=== PATIENT | female | born 1940 ===

== ENCOUNTER 2017-03-14 19:02 | Inpatient (IN) | payer MEDICARE, MEDICAID ==
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
[2017-03-14 20:36] LABS: BASO # 0.1 K/uL (0.0-0.2); BASO % 0.6 % (0.0-2.0); EOS # 0.1 K/uL (0.0-0.7); EOS % 0.5 % (0.0-4.0); HEMOGLOBIN 13.5 g/dL (12.0-16.0); LYMPH # 2.5 K/uL (1.0-4.3); LYMPH % 15.8 % (20.0-40.0); MEAN CELL VOLUME 93.2 fl (81.0-99.0); MEAN CORPUSCULAR HEMOGLOBIN 31.3 pg (27.0-31.0); MEAN CORPUSCULAR HGB CONC 33.6 g/dL (33.0-37.0); MEAN PLATELET VOLUME 8.5 fl (7.2-11.7); MONO # 1.6 K/uL (0.0-0.8); MONO % 10.3 % (0.0-10.0); NEUT # 11.5 K/uL (1.8-7.0); NEUT % 72.8 % (50.0-75.0); RBC 4.32 Mil/uL (3.80-5.20); RED CELL DISTRIBUTION WIDTH 13.4 % (11.5-14.5); WHITE BLOOD COUNT 15.8 K/uL (4.8-10.8)
[2017-03-14 20:49] LABS: ALB/GLOB RATIO 1.5 (1.0-2.1); ALBUMIN 4.8 g/dL (3.5-5.0); ALT/SGPT 34 U/L (9-52); AST/SGOT 49 U/L (14-36); BLOOD UREA NITROGEN 12 mg/dl (7-17); CALCIUM 10.3 mg/dL (8.4-10.2); GFR AFRICAN-AMERICAN > 60; GFR NON-AFRICAN AMERICAN > 60
[2017-03-14] MEDS ORDERED: Sodium Chloride 0.9% 1,000 ML IV STA (20:59)
[2017-03-14 21:18] LABS: PROTHROMBIN TIME 11.5 Seconds (9.8-13.1)
[2017-03-14 22:11] LABS: BARBITURATES, UR NEGATIVE (NEGATIVE); BENZODIAZEPINES, UR POSITIVE (NEGATIVE); OPIATES, UR NEGATIVE (NEGATIVE); PHENCYCLIDINE, UR NEGATIVE (NEGATIVE)
[2017-03-14 22:15] LABS: SQUAMOUS EPITHIAL 1 /hpf (0-5); URINE BACTERIA RARE (<OCC); URINE BILIRUBIN NEGATIVE (NEGATIVE); URINE BLOOD NEGATIVE (NEGATIVE); URINE CLARITY CLEAR (Clear); URINE COLOR STRAW (YELLOW); URINE GLUCOSE (UA) NEG (Normal); URINE LEUKOCYTE ESTERASE MOD Leu/uL (Negative); URINE NITRATE NEGATIVE (NEGATIVE); URINE PROTEIN NEGATIVE (NEGATIVE); URINE UROBILINOGEN 0.2-1.0 mg/dL (0.2-1.0)
[2017-03-14 23:43] LABS: SALICYLATE < 1.0 mg/dl
[2017-03-14 23:52] LABS: ACETAMINOPHEN < 10.0 ug/ml (10.0-30.0)
[2017-03-15] MEDS: Sodium Chloride 0.45% 1,000 ML IV SCH ×4 (01:22→20:45)
--- NOTE | 2017-03-15 08:24 | RAD ---
HISTORY: admit COMPARISON: Chest x-ray performed 02/24/13 TECHNIQUE: Chest, one view. FINDINGS: Examination limited by habitus. LUNGS: No focal consolidation. Please note that chest x-ray has limited sensitivity for the detection of pulmonary masses. PLEURA: No significant pleural effusion identified. No definite pneumothorax . CARDIOVASCULAR: Heart size appears within normal limits. Prominence of the mediastinum appears related to tortuous aorta. OSSEOUS STRUCTURES: Degenerative changes of the spine and shoulders. Acromioclavicular arthropathy. VISUALIZED UPPER ABDOMEN: Mild elevation of the right hemidiaphragm. OTHER FINDINGS: None. IMPRESSION: No focal consolidation, significant pleural effusion, or definite pneumothorax identified. Prominence of the aorta appears related to tortuous aorta. Additional findings as above.
[2017-03-15] MEDS: Enoxaparin 40 mg Syringe SC SCH (09:47)
--- NOTE | 2017-03-15 13:47 | CARD ---
APPROVED REPORT EKG Measurement Heart [id number] <Conclusion> Sinus rhythm with 1st degree AV block Minimal voltage criteria for LVH, may be normal variant Nonspecific T wave abnormality Prolonged QT Abnormal ECG
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
[2017-03-16] MEDS: Enoxaparin 40 mg Syringe SC SCH (08:31)
--- NOTE | 2017-03-16 12:41 | CP.PCM.CON ---
History of Present Illness - History of Present Illness History of Present Illness: Psychiatry Consult Note CC: "I'm having back pain" HPI: Patient 76 yo F with PMH of HTN, Hypercholesterolemia, and mood disorder ( depression vs bipolar disorder) presented to the ED complaining of dizziness. Patient denies psychiatric complaints to commercial real estate underwriter. Denies h/o bipolar disorder. Denies depression/anxiety. Denies hallucinations. A+ O x 3. She reports that she takes Xanax (dose unknown) and trazodone for sleep. PPHx: Patient is denying h/o psychiatric admission to commercial real estate underwriter. She reports that she sees Dr. Leal, who prescribes her Xanax and Trazodone for sleep. PMH: HTN, Hypercholesterolemia, Depression, chronic back pain, osteoarthrisis PSH: Hysterectomy, Hallux valgus. SH: denies smoking, alcohol or drugs. Allergies: NKA. PCP: Dr Reyes. MSE: A + O x 3, calm, cooperative, speech normal, accents, mood "okay", affect - broad, thought process- linear/coherent, no paranoia/delusions, no hallucinations. insight/judgment fair. good impulse control. No HI/SI. Impression: 76 yo female w/ reported history of depression (denies h/o bipolar disorder), patient denies any current psychiatric complaints and is not agreeable to inpatient admission at this time. -Continue Trazodone 50 mg PO HS -Hold Xanax and other benzodiazepines if the patient is having periods of confusion/delirium as these can worsening confusion and increase risk of falls -No acute inpatient admission indicated at this time Past Patient History - Past Medical History & Family History Past Medical History?: Yes - Past Social History Smoking Status: Never Smoked - CARDIAC Hx Cardiac Disorders: Yes Hx Hypercholesterolemia: Yes Hx Hypertension: Yes - PULMONARY Hx Respiratory Disorders: No Hx Tuberculosis: No - NEUROLOGICAL Hx Neurological Disorder: Yes Hx Dementia: Yes Hx Seizures: No - HEENT Hx HEENT Problems: No - RENAL Hx Chronic Kidney Disease: No - ENDOCRINE/METABOLIC Hx Endocrine Disorders: No - HEMATOLOGICAL/ONCOLOGICAL Hx Blood Disorders: No Hx Human Immunodeficiency Virus (HIV): No - INTEGUMENTARY Hx Dermatological Problems: No - MUSCULOSKELETAL/RHEUMATOLOGICAL Hx Musculoskeletal Disorders: Yes Hx Arthritis: Yes Hx Falls: Yes - GASTROINTESTINAL Hx Gastrointestinal Disorders: No - GENITOURINARY/GYNECOLOGICAL Hx Genitourinary Disorders: No Hx Sexually Transmitted Disorders: No - PSYCHIATRIC Hx Psychophysiologic Disorder: Yes Hx Anxiety: Yes Hx Bipolar Disorder: Yes Hx Depression: Yes Hx Substance Use: No - SURGICAL HISTORY Hx Surgeries: Yes Hx Hysterectomy: Yes Other/Comment: Colonoscopy - ANESTHESIA Hx Anesthesia: Yes Hx Anesthesia Reactions: No Hx Malignant Hyperthermia: No Has any member of the family had a problem w/ anesthesia?: No Meds Allergies/Adverse Reactions: Allergies Allergy/AdvReac Type Severity Reaction Status Date / Time No Known Allergies Allergy Unverified 02/20/15 11:41 - Medications Medications: Current Medications Acetaminophen (Tylenol 325mg Tab) 650 mg PO Q6 PRN PRN Reason: Pain, moderate (4-7) Last Admin: 03/16/17 00:39 Dose: 650 mg Enoxaparin Sodium (Lovenox) 40 mg SC DAILY TETE PRN Reason: Protocol Last Admin: 03/16/17 08:31 Dose: 40 mg Nystatin (Nystop Topical Powder) 1 applic TOP TID TETE Pantoprazole Sodium (Protonix Ec Tab) 40 mg PO DAILY TETE Tramadol HCl (Ultram) 50 mg PO Q6 PRN PRN Reason: Pain, severe (8-10) Trazodone HCl (Desyrel) 50 mg PO HS TETE Last Admin: 03/15/17 23:43 Dose: 50 mg Results - Vital Signs Recent Vital Signs: Last Vital Signs Temp 98.2 F 03/16/17 07:31 Pulse 82 03/16/17 10:28 Resp 18 03/16/17 07:31 BP 142/85 03/16/17 10:28 Pulse Ox 98 03/16/17 10:28 - Labs Result Diagrams: 03/14/17 20:31 03/14/17 20:31
[2017-03-16 14:44] LABS: BLOOD UREA NITROGEN 6 mg/dl (7-17); CALCIUM 9.5 mg/dL (8.4-10.2); GFR AFRICAN-AMERICAN > 60; GFR NON-AFRICAN AMERICAN > 60
[2017-03-16 15:39] LABS: BASO # 0.1 K/uL (0.0-0.2); BASO % 1.1 % (0.0-2.0); EOS # 0.6 K/uL (0.0-0.7); EOS % 4.7 % (0.0-4.0); HEMOGLOBIN 14.1 g/dL (12.0-16.0); LYMPH # 3.9 K/uL (1.0-4.3); LYMPH % 31.8 % (20.0-40.0); MEAN CELL VOLUME 94.3 fl (81.0-99.0); MEAN CORPUSCULAR HEMOGLOBIN 31.5 pg (27.0-31.0); MEAN CORPUSCULAR HGB CONC 33.4 g/dL (33.0-37.0); MEAN PLATELET VOLUME 8.6 fl (7.2-11.7); MONO # 1.1 K/uL (0.0-0.8); MONO % 9.3 % (0.0-10.0); NEUT # 6.5 K/uL (1.8-7.0); NEUT % 53.1 % (50.0-75.0); NRBC % 0.2 % (0.0-0.0); RBC 4.48 Mil/uL (3.80-5.20); RED CELL DISTRIBUTION WIDTH 13.8 % (11.5-14.5); WHITE BLOOD COUNT 12.2 K/uL (4.8-10.8)
[2017-03-16] MEDS ORDERED: Potassium Chloride 20 mEq ER Tab PO ONE (16:06)
[2017-03-16] MEDS: Pantoprazole 40 mg EC Tab PO SCH (20:38)
--- NOTE | 2017-03-16 23:41 | CP.PCM.PN ---
Subjective - Date & Time of Evaluation Date of Evaluation: 03/16/17 Time of Evaluation: 11:45 - Subjective Subjective: Seen and examined at the bed side. States feeling better. Patient's son wants her to go for [facility] due to multiple falls. Psych evaluated the patient and no inpatient pscyh treatment and discontinued 1 to 1. PT/OT evaluated and recommended [facility]. Objective - Vital Signs/Intake and Output Vital Signs (last 24 hours): Temp Pulse Resp BP Pulse Ox 97 F L 94 H 18 138/89 99 03/16/17 18:00 03/16/17 18:00 03/16/17 18:00 03/16/17 18:00 03/16/17 18:00 - Medications Medications: Current Medications Acetaminophen (Tylenol 325mg Tab) 650 mg PO Q6 PRN PRN Reason: Pain, moderate (4-7) Last Admin: 03/16/17 00:39 Dose: 650 mg Enoxaparin Sodium (Lovenox) 40 mg SC DAILY [facility] PRN Reason: Protocol Last Admin: 03/16/17 08:31 Dose: 40 mg Nystatin (Nystop Topical Powder) 1 applic TOP TID [facility] Last Admin: 03/16/17 16:30 Dose: 1 applic Pantoprazole Sodium (Protonix Ec Tab) 40 mg PO DAILY [facility] Last Admin: 03/16/17 20:38 Dose: 40 mg Tramadol HCl (Ultram) 50 mg PO Q6 PRN PRN Reason: Pain, severe (8-10) Last Admin: 03/16/17 23:24 Dose: 50 mg Trazodone HCl (Desyrel) 50 mg PO HS [facility] Last Admin: 03/16/17 22:32 Dose: 50 mg - Labs Labs: 03/16/17 15:35 03/16/17 13:20 PT 11.5 Seconds (9.8-13.1) 03/14/17 20:31 INR 1.0 (0.9-1.2) 03/14/17 20:31 APTT 31.0 Seconds (25.6-37.1) 03/14/17 20:31 - Constitutional Appears: No Acute Distress - Head Exam Head Exam: ATRAUMATIC, NORMAL INSPECTION, NORMOCEPHALIC - Eye Exam Eye Exam: EOMI, Normal appearance, PERRL Pupil Exam: NORMAL ACCOMODATION, PERRL - ENT Exam ENT Exam: Mucous Membranes Moist, Normal Exam - Neck Exam Neck Exam: Full ROM, Normal Inspection. absent: Lymphadenopathy - Respiratory Exam Respiratory Exam: Clear to Ausculation Bilateral, NORMAL BREATHING PATTERN - Cardiovascular Exam Cardiovascular Exam: REGULAR RHYTHM, +S1, +S2. absent: Murmur - GI/Abdominal Exam GI & Abdominal Exam: Soft, Normal Bowel Sounds. absent: Tenderness - Extremities Exam Extremities Exam: Full ROM, Normal Capillary Refill, Normal Inspection. absent : Joint Swelling, Pedal Edema - Back Exam Back Exam: NORMAL INSPECTION - Neurological Exam Neurological Exam: Alert, Awake, CN II-XII Intact, Normal Gait, Oriented x3 - Psychiatric Exam Psychiatric exam: Normal Affect, Normal Mood - Skin Skin Exam: Dry, Intact, Normal Color, Warm Assessment and Plan (1) Rhabdomyolysis Assessment & Plan: Bruises, Multiple Fall Precaution PT/OT Evaluation Status: Acute (2) Rhabdomyolysis Assessment and Plan: IVF Recheck BMP and Repeat CPK total Status: Acute (3) Depression Assessment and Plan: on from ER Crises evalauted Psych Consult for D/C Status: Acute
[2017-03-17] MEDS: Enoxaparin 40 mg Syringe SC SCH (09:27)
[2017-03-17] MEDS: Pantoprazole 40 mg EC Tab PO SCH (09:27)
[2017-03-17 11:00] LABS: BASO # 0.1 K/uL (0.0-0.2); BASO % 0.7 % (0.0-2.0); EOS # 0.1 K/uL (0.0-0.7); EOS % 1.2 % (0.0-4.0); HEMOGLOBIN 14.1 g/dL (12.0-16.0); LYMPH # 2.7 K/uL (1.0-4.3); LYMPH % 25.7 % (20.0-40.0); MEAN CELL VOLUME 93.4 fl (81.0-99.0); MEAN CORPUSCULAR HEMOGLOBIN 31.9 pg (27.0-31.0); MEAN CORPUSCULAR HGB CONC 34.2 g/dL (33.0-37.0); MEAN PLATELET VOLUME 8.5 fl (7.2-11.7); MONO # 0.7 K/uL (0.0-0.8); MONO % 6.2 % (0.0-10.0); NEUT % 66.2 % (50.0-75.0); RBC 4.42 Mil/uL (3.80-5.20); RED CELL DISTRIBUTION WIDTH 13.8 % (11.5-14.5); WHITE BLOOD COUNT 10.6 K/uL (4.8-10.8)
[2017-03-17 11:08] LABS: BLOOD UREA NITROGEN 10 mg/dl (7-17); CALCIUM 9.9 mg/dL (8.4-10.2); GFR AFRICAN-AMERICAN > 60; GFR NON-AFRICAN AMERICAN > 60
--- NOTE | 2017-03-17 23:10 | CP.PCM.PN ---
Subjective - Date & Time of Evaluation Date of Evaluation: 03/17/17 Time of Evaluation: 14:15 - Subjective Subjective: Bruises, Multiple Fall Precaution PT/OT Evaluation Status: Acute (2) Rhabdomyolysis Assessment and Plan: IVF Recheck BMP and Repeat CPK total Status: Acute (3) Depression Assessment and Plan: on 1 to 1 from ER Crises evalauted Psych Consult for D/C Objective - Vital Signs/Intake and Output Vital Signs (last 24 hours): Temp Pulse Resp BP Pulse Ox 98.2 F 71 18 162/93 H 94 L 03/17/17 16:19 03/17/17 17:19 03/17/17 16:19 03/17/17 17:19 03/17/17 16:19 - Medications Medications: Current Medications Acetaminophen (Tylenol 325mg Tab) 650 mg PO Q6 PRN PRN Reason: Pain, moderate (4-7) Last Admin: 03/16/17 00:39 Dose: 650 mg Amlodipine Besylate (Norvasc) 5 mg PO DAILY [facility] Enoxaparin Sodium (Lovenox) 40 mg SC DAILY [facility] PRN Reason: Protocol Last Admin: 03/17/17 09:27 Dose: 40 mg Metoprolol Tartrate (Lopressor) 12.5 mg PO Q12 [facility] Last Admin: 03/17/17 17:19 Dose: 12.5 mg Nystatin (Nystop Topical Powder) 1 applic TOP TID [facility] Last Admin: 03/17/17 17:20 Dose: 1 applic Pantoprazole Sodium (Protonix Ec Tab) 40 mg PO DAILY [facility] Last Admin: 03/17/17 09:27 Dose: 40 mg Tramadol HCl (Ultram) 50 mg PO Q6 PRN PRN Reason: Pain, severe (8-10) Last Admin: 03/17/17 17:23 Dose: 50 mg Trazodone HCl (Desyrel) 50 mg PO HS [facility] Last Admin: 03/17/17 22:18 Dose: 50 mg - Labs Labs: 03/17/17 10:54 03/17/17 10:54 PT 11.5 Seconds (9.8-13.1) 03/14/17 20:31 INR 1.0 (0.9-1.2) 03/14/17 20:31 APTT 31.0 Seconds (25.6-37.1) 03/14/17 20:31
[2017-03-18 07:45] VITALS: BP 153/87; PULSE 82; RESP 20; TEMP 97.1; O2SAT 95
[2017-03-18] MEDS: Enoxaparin 40 mg Syringe SC SCH (09:15)
[2017-03-18] MEDS: Pantoprazole 40 mg EC Tab PO SCH (09:16)
--- NOTE | 2017-03-18 16:53 | CP.PCM.DIS ---
Provider - Provider Date of Admission: 03/14/17 22:24 Attending physician: Sagrario Coronel MD Time Spent in preparation of Discharge (in minutes): 25 Hospital Course - Lab Results Lab Results: Most Recent Lab Values WBC 10.6 K/uL (4.8-10.8) 03/17/17 10:54 RBC 4.42 Mil/uL (3.80-5.20) 03/17/17 10:54 Hgb 14.1 g/dL (12.0-16.0) 03/17/17 10:54 Hct 41.3 % (34.0-47.0) 03/17/17 10:54 MCV 93.4 fl (81.0-99.0) 03/17/17 10:54 MCH 31.9 pg (27.0-31.0) H 03/17/17 10:54 MCHC 34.2 g/dL (33.0-37.0) 03/17/17 10:54 RDW 13.8 % (11.5-14.5) 03/17/17 10:54 Plt Count 323 K/uL (130-400) 03/17/17 10:54 MPV 8.5 fl (7.2-11.7) 03/17/17 10:54 Neut % (Auto) 66.2 % (50.0-75.0) 03/17/17 10:54 Lymph % (Auto) 25.7 % (20.0-40.0) 03/17/17 10:54 [place] % (Auto) 6.2 % (0.0-10.0) 03/17/17 10:54 Eos % (Auto) 1.2 % (0.0-4.0) 03/17/17 10:54 Baso % (Auto) 0.7 % (0.0-2.0) 03/17/17 10:54 Neut # 7.0 K/uL (1.8-7.0) 03/17/17 10:54 Lymph # 2.7 K/uL (1.0-4.3) 03/17/17 10:54 [place] # 0.7 K/uL (0.0-0.8) 03/17/17 10:54 Eos # 0.1 K/uL (0.0-0.7) 03/17/17 10:54 Baso # 0.1 K/uL (0.0-0.2) 03/17/17 10:54 PT 11.5 Seconds (9.8-13.1) 03/14/17 20:31 INR 1.0 (0.9-1.2) 03/14/17 20:31 APTT 31.0 Seconds (25.6-37.1) 03/14/17 20:31 Sodium 141 mmol/l (132-148) 03/17/17 10:54 Potassium 3.7 MMOL/L (3.6-5.0) 03/17/17 10:54 Chloride 107 mmol/L (98-107) 03/17/17 10:54 Carbon Dioxide 20 mmol/L (22-30) L 03/17/17 10:54 Anion Gap 18 (10-20) 03/17/17 10:54 BUN 10 mg/dl (7-17) 03/17/17 10:54 Creatinine 0.6 mg/dL (0.7-1.2) L 03/17/17 10:54 Est GFR ( Amer) > 60 03/17/17 10:54 Est GFR (Non-Af Amer) > 60 03/17/17 10:54 POC Glucose (mg/dL) 98 mg/dL (65-110) 03/14/17 21:10 Random Glucose 167 mg/dL (65-105) H 03/17/17 10:54 Calcium 9.9 mg/dL (8.4-10.2) 03/17/17 10:54 Total Bilirubin 0.6 mg/dl (0.2-1.3) 03/14/17 20:31 AST 49 U/L (14-36) H 03/14/17 20:31 ALT 34 U/L (9-52) 03/14/17 20:31 Alkaline Phosphatase 144 U/L (38-126) H 03/14/17 20:31 Total Creatine Kinase 598 U/L (30-135) H 03/17/17 10:54 Total Protein 8.0 G/DL (6.3-8.2) 03/14/17 20:31 Albumin 4.8 g/dL (3.5-5.0) 03/14/17 20:31 Globulin 3.2 gm/dL (2.2-3.9) 03/14/17 20:31 Albumin/Globulin Ratio 1.5 (1.0-2.1) 03/14/17 20:31 Urine Color Straw (YELLOW) 03/14/17 21:39 Urine Clarity Clear (Clear) 03/14/17 21:39 Urine pH 7.0 (5.0-8.0) 03/14/17 21:39 Ur Specific [place] 1.008 (1.003-1.030) 03/14/17 21:39 Urine Protein Negative mg/dL (NEGATIVE) 03/14/17 21:39 Urine Glucose (UA) Neg mg/dL (Normal) 03/14/17 21:39 Urine Ketones Negative mg/dL (NEGATIVE) 03/14/17 21:39 Urine Blood Negative (NEGATIVE) 03/14/17 21:39 Urine Nitrate Negative (NEGATIVE) 03/14/17 21:39 Urine Bilirubin Negative (NEGATIVE) 03/14/17 21:39 Urine Urobilinogen 0.2-1.0 mg/dL (0.2-1.0) 03/14/17 21:39 Ur Leukocyte Esterase Mod Ana/uL (Negative) 03/14/17 21:39 Urine RBC (Auto) < 1 /hpf (0-3) 03/14/17 21:39 Urine Microscopic WBC 1 /hpf (0-5) 03/14/17 21:39 Ur Squamous Epith Cells 1 /hpf (0-5) 03/14/17 21:39 Urine Bacteria Rare (<OCC) 03/14/17 21:39 Salicylates < 1.0 mg/dl 03/14/17 22:43 Urine Opiates Screen Negative (NEGATIVE) 03/14/17 21:39 Urine Methadone Screen Negative (NEGATIVE) 03/14/17 21:39 Acetaminophen < 10.0 ug/ml (10.0-30.0) L 03/14/17 22:43 Ur Barbiturates Screen Negative (NEGATIVE) 03/14/17 21:39 Ur Phencyclidine Scrn Negative (NEGATIVE) 03/14/17 21:39 Ur Amphetamines Screen Negative (NEGATIVE) 03/14/17 21:39 U Benzodiazepines Scrn Positive (NEGATIVE) H 03/14/17 21:39 U Oth Cocaine Metabols Negative (NEGATIVE) 03/14/17 21:39 U Cannabinoids Screen Negative (NEGATIVE) 03/14/17 21:39 Alcohol, Quantitative < 10 mg/dl (0-10) 03/14/17 20:31 Discharge Exam - Head Exam Head Exam: ATRAUMATIC, NORMAL INSPECTION, NORMOCEPHALIC Discharge Plan - Follow Up Plan Condition: FAIR Disposition: TRANSF TO SNF Instructions: Rhabdomyolysis (DC)
== END 2017-03-18 12:22 | DRG 558 ==
LOC: H.ER 19:02 → H.ERHOLD 22:24 → H.MEDSURG1 03-15 00:50
PROVIDERS: ADMIT Internal Medicine; ATTEND Internal Medicine
DX: M62.82 Rhabdomyolysis (principal); F03.90 Unspecified dementia, unspecified severity, without behavioral disturbance, psychotic disturbance, mood disturbance, and anxiety; W19.XXXA Unspecified fall, initial encounter; E78.00 Pure hypercholesterolemia, unspecified; F31.9 Bipolar disorder, unspecified; I10 Essential (primary) hypertension; R29.6 Repeated falls; S00.83XA Contusion of other part of head, initial encounter; S60.222A Contusion of left hand, initial encounter; S60.221A Contusion of right hand, initial encounter; S80.12XA Contusion of left lower leg, initial encounter; S80.11XA Contusion of right lower leg, initial encounter; Y93.9 Activity, unspecified; Y92.9 Unspecified place or not applicable; Z90.710 Acquired absence of both cervix and uterus; F41.9 Anxiety disorder, unspecified; G89.29 Other chronic pain; M19.90 Unspecified osteoarthritis, unspecified site

== ENCOUNTER 2017-04-19 11:59 | Inpatient (IN) | payer MEDICARE, MEDICAID ==
--- NOTE | 2017-04-19 12:17 | ED PDOC ---
HPI:STROKE - Historian Historian: EMS - Chief Complaint Chief Complaint: Slurred speech, Mental status change - Onset Onset: Just prior to presenting - Notes: Notes:: Yani is a 76 y/o female who was brought to the ED via EMS for stroke evaluation. Patient was found by superintendent ammunition storage, sitting slumped next to her bed which is 1.5 ft tall. Patient with slurred speech and altered mental status. PMD: Unknown NIHSS Stroke Scale - How Severe is the Stroke Level of Consciousness: 1=Drowsy LOC to Questions: 0=Both comments correct LOC to commands: 0=Obeys both correctly Best Gaze: 0=Normal Visual: 0=No visual loss Facial: 0=Normal Motor Arm - Left: 2=Falls before 10 sec Motor Arm - Right: 1=Drift noted before 10 sec Motor Leg - Left: 2=Falls before 5 sec Motor Leg - Right: 0=No drift Limb Ataxia: 0=Absent Sensory: 0=Normal Best Language: 1=Mild to moderate aphasia Dysarthia: 1=Mild to moderate slurring Extinction & Inattention (Neglect): 0=Normal, no object Score: 8 rTPA Inclusion/Exclusion - Refusal of Treatment Patient Refused Treatment: No - Inclusion Criteria for Altepase Patient is 18 years or Older: Yes The Clinical Diagnosis of Ischemic Stroke That is Causing a Potentially Disabling Neurological Deficit: Yes Time of Onset is Well Established to be Less Than 270 Minute Before Treatment Would Begin: No Risk/Benefit Discussed With Patient/Family Member Present: No Past Medical History Reviewed: Historical Data, Nursing Documentation, Vital Signs Vital Signs: Last Vital Signs Temp 97.0 F L 04/19/17 12:02 Pulse 59 L 04/19/17 12:02 Resp 20 04/19/17 12:02 BP 137/70 04/19/17 12:02 Pulse Ox 96 04/19/17 12:02 - Medical History PMH: Anxiety, Arthritis, Bipolar Disorder, Dementia, Depression, HTN, Hypercholesterolemia Denies: HIV, Chronic Kidney Disease, Seizures, Sexually Transmitted Disease - Surgical History Other surgeries: Hysterectomy, Colonoscopy - Family History Family History: States: Unknown Family Hx - Social History Current smoker - smoking cessation education provided: No Alcohol: None Drugs: Denies - Home Medications Home Medications: Ambulatory Orders Medication Instructions Recorded Meclizine [Antivert] 03/14/17 Nystatin [Nystop Topical Powder] 1 applic TOP TID bottle 03/17/17 Pantoprazole [Protonix EC Tab] 40 mg PO DAILY ect 03/17/17 traMADol [Ultram] 50 mg PO Q6 PRN #20 tab 03/17/17 traZODone [Desyrel] 50 mg PO HS tab 03/17/17 - Allergies Allergies/Adverse Reactions: Allergies Allergy/AdvReac Type Severity Reaction Status Date / Time No Known Allergies Allergy Verified 04/19/17 12:02 Review of Systems ROS Statement: Except As Marked, All Systems Reviewed And Found Negative Neurological: Positive for: Change in Speech (slurred), Altered Mental Status, Other (Drowsiness) Physical Exam - Reviewed Nursing Documentation Reviewed: Yes Vital Signs Reviewed: Yes - Physical Exam Appears: Positive for: Non-toxic, No Acute Distress Head Exam: Positive for: ATRAUMATIC, NORMOCEPHALIC Skin: Positive for: Normal Color, Warm, Dry Eye Exam: Positive for: EOMI, Normal appearance, PERRL ENT: Positive for: Other (Dry mucus membranes) Neck: Positive for: Normal, Painless ROM, Supple Cardiovascular/Chest: Positive for: Regular Rate, Rhythm. Negative for: Murmur Respiratory: Positive for: Normal Breath Sounds. Negative for: Accessory Muscle Use, Respiratory Distress Gastrointestinal/Abdominal: Positive for: Normal Exam, Soft. Negative for: Tenderness Back: Positive for: Normal Inspection. Negative for: Vertebral Tenderness Extremity: Positive for: Normal ROM, Other (Ecchymosis at the anterior bilateral knees) Neurologic/Psych: Positive for: Alert, Oriented (x 2), Aphasia, Other (Drowsy but responsive to verbal stimuli) - Laboratory Results Result Diagrams: 04/21/17 04:20 04/21/17 04:20 - ECG O2 Sat by Pulse Oximetry: 96 (RA) Pulse Ox Interpretation: Normal - Critical Care Total Time (In Min): 45 Medical Decision Making Medical Decision Making: Time: 12:09 Initial Impression: AMS, Aphasia, CVA Initial Plan: --Labs --EKG --Acetadote 200 mg/ml IV --Tylenol 325 mg OH --Pending X-Rays Pelvis 1 view and Knee Bilateral 3 views --Pending CT Head and CT C-Spine Time: 13:01 CT Head: FINDINGS: HEMORRHAGE: No intracranial hemorrhage. BRAIN: Moderate diffuse/ confluent chronic white matter ischemic changes seen extending peripherally into the deep and subcortical white matter both cerebral hemispheres. There may also be some minor extension of these changes into the white matter tracts of both basal ganglia. Note that the possibility of a hyperstroke the may be CT occult for the 1st 12-24 hours. Moderate generalized volume loss with enlargement of the ventricles and sulci. Minor vascular calcifications of both carotid siphons VENTRICLES: No obstructive hydrocephalus CALVARIUM: There are no acute calvarial fractures PARANASAL SINUSES: Visualized paranasal sinuses well-developed and currently well-aerated. No fluid levels seen to suggest acute sinusitis. Minimal mucosal thickening noted within a few ethmoid air cells. MASTOID AIR CELLS: Mastoid air complexes well-developed and currently well-aerated. OTHER FINDINGS: None. IMPRESSION: No acute intracranial hemorrhage. Moderate chronic white matter ischemic changes. There also appears to be some extension of these changes into the white matter tracts of both basal nuclei. Underlying small acute infarct cannot be completely excluded. Moderate generalized volume loss. Time: 14:47 CT C-spine: FINDINGS: VERTEBRAE: The current study reveals no evidence of acute compression fractures no retropulsed fragments. Vertebral bodies exhibit relatively normal stature. There is mild straightening of the normal cervical lordosis which could be due to patient positioning gantry however underlying element of muscle spasm may contribute. Vertebral bodies and facets otherwise normally aligned DISCS/SPINAL CANAL/NEURAL FORAMINA: Multilevel degenerative spondylosis. At the C6-C7 level, there is disc space narrowing, cortical endplate irregularity and prominent posterior osteophytic ridge disc complex that is larger on the right than left and results in moderate to fairly significant canal stenosis and presumed cord compression more so on the right. Hypertrophic uncovertebral facets with bilateral foraminal stenosis. At the C5-C6 level, there is disc space narrowing with endplate eburnation and prominent osteophytic ridge disc complex that results in compression of the ventral surface of the thecal sac and spinal cord. Central canal is narrowed. Uncovertebral facets are hypertrophic. Exit foramina appear marginal to adequate. Less severe degenerative spondylosis seen at the remaining cervical disc space levels. Disc space heights relatively maintained however small osteophytic ridge that disc bulge complexes seen at the C4-C5 through the C2-C3 levels. Changes result in minor indentation of ventral surface of the thecal sac and probably reach the ventral surface of the cord. Overall central canal appears adequate. Exit foramina appear adequate as well. PARASPINAL SOFT TISSUES: Unremarkable. OTHER FINDINGS: None. IMPRESSION: No acute fractures. Multilevel degenerative spondylosis most significantly affecting C6-C7 and C5-C6 levels as above. Time: 13:49 --Labs reviewed, significant for Acetaminophen of 58, and presence of WBC in urine. Time: 16:09 --Discussed case with Dr. Carr --Patient is to be admitted for altered mental status, UTI, and attempted Tylenol OD Scribe Attestation: Documented by Laura Newman, acting as a scribe for Yessi Pitts MD Provider Scribe Attestation: All medical record entries made by the Scribe were at my direction and personally dictated by me. I have reviewed the chart and agree that the record accurately reflects my personal performance of the history, physical exam, medical decision making, and the department course for this patient. I have also personally directed, reviewed, and agree with the discharge instructions and disposition. Disposition - Clinical Impression Clinical Impression: Tylenol overdose, Altered mental status, UTI (urinary tract infection) - Patient ED Disposition Is Patient to be Admitted: Yes - Disposition Disposition Time: 16:00 Condition: CRITICAL - Pt Status Changed To: Hospital Disposition Of: Inpatient - Admit Certification Admit to Inpatient:: After my assessment, the patient will require hospitalization for at least two midnights. This is because of the severity of symptoms shown, intensity of services needed, and/or the medical risk in this patient being treated as an outpatient. - POA Present On Arrival: None
[2017-04-19 12:42] LABS: BASO # 0.1 K/uL (0.0-0.2); BASO % 0.6 % (0.0-2.0); EOS % 0.3 % (0.0-4.0); HEMATOCRIT 42.4 % (34.0-47.0); LYMPH # 1.3 K/uL (1.0-4.3); LYMPH % 6.9 % (20.0-40.0); MEAN CELL VOLUME 91.1 fl (81.0-99.0); MEAN CORPUSCULAR HEMOGLOBIN 31.2 pg (27.0-31.0); MEAN CORPUSCULAR HGB CONC 34.2 g/dL (33.0-37.0); MEAN PLATELET VOLUME 8.9 fl (7.2-11.7); MONO # 1.4 K/uL (0.0-0.8); MONO % 7.7 % (0.0-10.0); NEUT # 15.7 K/uL (1.8-7.0); NEUT % 84.5 % (50.0-75.0); PLATELET COUNT 299 K/uL (130-400); RED CELL DISTRIBUTION WIDTH 12.5 % (11.5-14.5)
[2017-04-19 12:46] LABS: WHITE BLOOD COUNT 18.5 K/uL (4.8-10.8)
[2017-04-19 12:55] LABS: PARTIAL THROMBOPLASTIN TIME 29.6 Seconds (25.6-37.1)
--- NOTE | 2017-04-19 13:02 | CT ---
PROCEDURE: CT HEAD WITHOUT CONTRAST. HISTORY: Aphasia, AMS COMPARISON: None available. TECHNIQUE: Axial computed tomography images were obtained through the head/brain without intravenous contrast. Radiation dose: Total exam DLP = 1071.38 mGy-cm. This CT exam was performed using one or more of the following dose reduction techniques: Automated exposure control, adjustment of the mA and/or kV according to patient size, and/or use of iterative reconstruction technique. FINDINGS: HEMORRHAGE: No intracranial hemorrhage. BRAIN: Moderate diffuse/ confluent chronic white matter ischemic changes seen extending peripherally into the deep and subcortical white matter both cerebral hemispheres. There may also be some minor extension of these changes into the white matter tracts of both basal ganglia. Note that the possibility of a hyperstroke the may be CT occult for the 1st 12-24 hours. Moderate generalized volume loss with enlargement of the ventricles and sulci. Minor vascular calcifications of both carotid siphons VENTRICLES: No obstructive hydrocephalus CALVARIUM: There are no acute calvarial fractures PARANASAL SINUSES: Visualized paranasal sinuses well-developed and currently well-aerated. No fluid levels seen to suggest acute sinusitis. Minimal mucosal thickening noted within a few ethmoid air cells. MASTOID AIR CELLS: Mastoid air complexes well-developed and currently well-aerated. OTHER FINDINGS: None. IMPRESSION: No acute intracranial hemorrhage. Moderate chronic white matter ischemic changes. There also appears to be some extension of these changes into the white matter tracts of both basal nuclei. Underlying small acute infarct cannot be completely excluded. Moderate generalized volume loss.
[2017-04-19 13:09] LABS: ALB/GLOB RATIO 1.3 (1.0-2.1); ALCOHOL SERUM < 10 mg/dl (0-10); ALKALINE PHOSPHATASE 96 U/L (38-126); ALT/SGPT 71 U/L (9-52); AST/SGOT 84 U/L (14-36); BILIRUBIN,TOTAL 0.4 mg/dl (0.2-1.3); BLOOD UREA NITROGEN 9 mg/dl (7-17); CALCIUM 9.5 mg/dL (8.4-10.2); CARBON DIOXIDE 18 mmol/L (22-30); CHLORIDE 98 mmol/L (98-107); CHOLESTEROL 181 mg/dL (0-199); GFR AFRICAN-AMERICAN > 60; GLUCOSE,RANDOM 135 mg/dL (65-105); POTASSIUM 2.7 MMOL/L (3.6-5.0); SODIUM 132 mmol/l (132-148); TOTAL PROTEIN 7.3 G/DL (6.3-8.2)
[2017-04-19] MEDS ORDERED: ACETYLCYSTEINE IVPB STA (13:17)
[2017-04-19] MEDS ORDERED: WATER IVPB STA (13:17)
[2017-04-19] MEDS ORDERED: DEXTROSE 5% IVPB STA (13:17)
[2017-04-19 13:44] LABS: VENOUS BLOOD GAS BASE EXCESS -4.7 mmol/L (0.0-2.0); VENOUS BLOOD GAS PCO2 33 mmHg (40-60); VENOUS BLOOD PH 7.38 (7.32-7.43)
[2017-04-19 14:02] LABS: EOSINOPHIL 1 % (0-7); NEUTROPHIL 84 % (42-75); TOTAL CELLS COUNTED 100
[2017-04-19 14:03] LABS: GIANT PLATELETS PRESENT; LARGE PLATELETS PRESENT
[2017-04-19] MEDS ORDERED: Potassium CL 10 MEQ/50 ML 50 ML IVPB STA (14:07)
[2017-04-19 14:27] LABS: RBC URINE 2 /hpf (0-3); URINE BACTERIA MOD (<OCC); URINE BILIRUBIN NEGATIVE (NEGATIVE); URINE BLOOD NEGATIVE (NEGATIVE); URINE COLOR YELLOW (YELLOW); URINE GLUCOSE (UA) NEG (Normal); URINE KETONE NEGATIVE (NEGATIVE); URINE LEUKOCYTE ESTERASE LARGE Leu/uL (Negative); URINE PROTEIN 30 mg/dL (NEGATIVE); URINE UROBILINOGEN 0.2-1.0 mg/dL (0.2-1.0); WBC CLUMPS MANY /hpf; WBC URINE 1284 /hpf (0-5)
--- NOTE | 2017-04-19 14:49 | CT ---
PROCEDURE: CT Cervical Spine without contrast HISTORY: <Fall> COMPARISON: None available. TECHNIQUE: Axial computed tomography images were obtained of the cervical spine without the use of intravenous contrast. Coronal and sagittal reformatted images were created and reviewed. Radiation dose: Total exam DLP = 754.95 mGy-cm. This CT exam was performed using one or more of the following dose reduction techniques: Automated exposure control, adjustment of the mA and/or kV according to patient size, and/or use of iterative reconstruction technique. FINDINGS: VERTEBRAE: The current study reveals no evidence of acute compression fractures no retropulsed fragments. Vertebral bodies exhibit relatively normal stature. There is mild straightening of the normal cervical lordosis which could be due to patient positioning gantry however underlying element of muscle spasm may contribute. Vertebral bodies and facets otherwise normally aligned DISCS/SPINAL CANAL/NEURAL FORAMINA: Multilevel degenerative spondylosis. At the C6-C7 level, there is disc space narrowing, cortical endplate irregularity and prominent posterior osteophytic ridge disc complex that is larger on the right than left and results in moderate to fairly significant canal stenosis and presumed cord compression more so on the right. Hypertrophic uncovertebral facets with bilateral foraminal stenosis. At the C5-C6 level, there is disc space narrowing with endplate eburnation and prominent osteophytic ridge disc complex that results in compression of the ventral surface of the thecal sac and spinal cord. Central canal is narrowed. Uncovertebral facets are hypertrophic. Exit foramina appear marginal to adequate. Less severe degenerative spondylosis seen at the remaining cervical disc space levels. Disc space heights relatively maintained however small osteophytic ridge that disc bulge complexes seen at the C4-C5 through the C2-C3 levels. Changes result in minor indentation of ventral surface of the thecal sac and probably reach the ventral surface of the cord. Overall central canal appears adequate. Exit foramina appear adequate as well. PARASPINAL SOFT TISSUES: Unremarkable. OTHER FINDINGS: None. IMPRESSION: No acute fractures. Multilevel degenerative spondylosis most significantly affecting C6-C7 and C5-C6 levels as above.
--- NOTE | 2017-04-19 16:24 | RAD ---
PROCEDURE: Bilateral knees HISTORY: Status post fall COMPARISON: No prior FINDINGS: BONES: Right knee findings: No evidence of acute displaced fracture nor dislocation. The osseous structures appear intact. Tricompartmental degenerative joint changes with mild medial joint space narrowing and small to medium-sized marginal lateral osteophyte formation. Posterior patella osteophyte formation and anterior patella enthesophytes. Questionable trace joint effusion. Note made of discontinuous enthesophyte arising from the tibial tubercle Left knee findings: Tricompartmental DJD with mild medial joint space narrowing and small marginal lateral osteophyte formation posterior patellar osteophyte formation with prominent anterior patella enthesophytes. Questionable trace suprapatellar joint effusion. Small tibial tubercle enthesophyte Impression: No evidence of acute displaced fracture nor dislocation. Mild DJD as described.
--- NOTE | 2017-04-19 16:25 | RAD ---
HISTORY: CVA COMPARISON: Comparison chest 03/14/2017 FINDINGS: LUNGS: Poor inspiration with low lung volumes, crowded bronchovascular markings and mild bibasilar atelectasis left greater than right PLEURA: No significant pleural effusion identified, no pneumothorax apparent. CARDIOVASCULAR: Normal. OSSEOUS STRUCTURES: No significant abnormalities. VISUALIZED UPPER ABDOMEN: Normal. OTHER FINDINGS: None. IMPRESSION: Poor inspiration with low lung volumes, crowded bronchovascular markings and mild bibasilar atelectasis left greater than right
--- NOTE | 2017-04-19 16:36 | RAD ---
PROCEDURE: Pelvis dated 04/18/2017. HISTORY: Status post fall COMPARISON: Correlation made with radiographs lumbar spine dated 02/20/2015. Comparison also made with CT scan abdomen pelvis dated 02/08/2012. . FINDINGS: Current study reveals no evidence of acute displaced fracture nor dislocation. Both femoral heads are appropriately located within the respective acetabula. Degenerative osteoarthritis both hip joints. SI joints are intact and patent the there is minor asymmetry of the left SI joint slightly wider in appearance than the right however this could be due to some patient rotation as the appearance is similar to prior plain film radiographs of the lumbar spine. Minor degenerative spondylosis of the lumbosacral spine. . Impression: No acute fractures. Mild degenerative osteoarthritis both hip joints. If symptoms persist or occult fracture suspected clinically consider followup CT scan of the pelvis -hips.
[2017-04-19] MEDS ORDERED: cefTRIAXone (Rocephin) 1 gm Inj ONE (16:56)
[2017-04-19 17:13] LABS: ABG ALLEN TEST YES; ARTERIAL BLOOD GAS HCO3 21.9 mmol/L (21-28); ARTERIAL BLOOD GAS O2 CAPACITY 20.5 mL/dL (16-24); ARTERIAL BLOOD GAS O2 CONTENT 20.5 ML/dL (15-23); ARTERIAL BLOOD GAS PH 7.41 (7.35-7.45); ARTERIAL BLOOD GAS PO2 93 mm/Hg (80-100); ARTERIAL BLOOD HGB O2 SAT 94.5 % (95.0-98.0); CARBOXYHEMOGLOBIN 3.3 % (0.5-1.5); HHB -0.2 % (0.0-5.0); METHEMOGLOBIN 2.5 % (0.0-3.0)
[2017-04-19] MEDS: Enoxaparin 40 mg Syringe SC SCH (18:21)
[2017-04-19] MEDS: Potassium Chl 40 mEq in D5-1/2 1,000 ML IV SCH (18:21)
[2017-04-19] MEDS ORDERED: ACETYLCYSTEINE IVPB ONE (18:37)
[2017-04-19] MEDS ORDERED: WATER IVPB ONE (18:37)
[2017-04-19] MEDS ORDERED: DEXTROSE 5% IVPB ONE (18:37)
[2017-04-19 20:36] LABS: MAGNESIUM 1.8 MG/DL (1.6-2.3); PHOSPHOROUS 3.2 mg/dl (2.5-4.5)
[2017-04-19 21:06] LABS: THYROID STIMULATING HORMONE 0.47 mIU/ML (0.46-4.68)
[2017-04-20] MEDS ORDERED: WATER IVPB ONE (00:29)
[2017-04-20] MEDS ORDERED: DEXTROSE 5% IVPB ONE (00:29)
[2017-04-20] MEDS ORDERED: ACETYLCYSTEINE IVPB ONE (00:29)
[2017-04-20] MEDS: Potassium Chl 40 mEq in D5-1/2 1,000 ML IV SCH (06:00)
--- NOTE | 2017-04-20 06:24 | CON ---
DATE: 04/19/2017 CRITICAL CARE CONSULTATION HISTORY OF PRESENT ILLNESS: The patient is in ER, being admitted to ICU. The patient is seen and evaluated at the bedside at the request of ER physician. Events since ER reviewed and discussed. A 76-year-old female brought to ED via EMS for stroke evaluation. The patient was reportedly found by hospice superintendent in the building sitting slumped next to her bed and with slurred speech and altered mental status. In ER, the patient's vital signs showed temperature 97, heart rate of 59, respiratory rate of 20, blood pressure 130/70 and pulse oximetry 96%. The patient's CT of the head obtained, showed no acute abnormality. X-ray of the C-spine, chest x-ray, pelvis and knee x-ray and x-ray of the left hand showed no acute fracture except for degenerative arthritis. The patient is known to have a history of bipolar disorder, anxiety, dementia, hypertension and hyperlipidemia. No history of HIV, chronic kidney disease. The patient is noted to have elevated Tylenol level, hence loaded with acetylcysteine and admitted to ICU. PAST MEDICAL HISTORY: As noted above. SURGICAL HISTORY: Not obtainable. MEDICATIONS AT HOME: Include meclizine 12.5 mg, nystatin topical powder, Protonix, tramadol and trazodone. ALLERGIES: NONE DOCUMENTED. FAMILY HISTORY: Not contributory. SOCIAL HISTORY: Denies smoking or drinking alcohol. Denies recreational drug use. PHYSICAL EXAMINATION GENERAL: Elderly female, oriented to name and place, looks older than her stated age. VITAL SIGNS: Temperature 97.2, heart rate 60 and regular, blood pressure 149/73, no orthostasis, mean arterial pressure 98, respiratory rate 19 to 20 and saturation 96% on 2 L nasal cannula. Intake and output as noted. Weight 170 pounds. HEAD, EYES, EARS, NOSE AND THROAT: Pupils are reactive. Conjunctivae pink. Sclerae white. No nystagmus. No gaze preference. NECK: Supple. Trachea central. CHEST: Bilateral breath sounds diminished in intensity. HEART: Rhythm regular. S1 and S2 normal. No audible murmur. ABDOMEN: Bowel sounds are present. Soft. Liver and spleen are not palpable. Bladder not distended. EXTREMITIES: Mild erythema on the left hand. No palpable cord. Peripheral pulses are intact, reduced in intensity. NEUROLOGIC: No cranial nerve deficit. No motor deficit. No sensory impairment. Deep tendon reflex 2+ bilaterally. Plantar mild flexor. LABORATORY DATA: SMA-7: Sodium 132, potassium 2.7, chloride 98, carbon dioxide 18, BUN 9, creatinine 0.6 with anion gap of 16, random glucose 135, calcium 9.5 and alkaline phosphatase 76. Troponin less than 0.0120. Total protein 7.3, albumin 4.1. Triglycerides 88, cholesterol 181, LDL of 106, HDL of 43. PT 12.6, INR 1.2, PTT 29.6. WBC 18.5, hemoglobin 14.5, hematocrit 42.4, platelet count 299, neutrophils 84.5, lymphocytes 6.9, monocytes 7.7. Lactate of 2. Urinalysis: Yellow, bilirubin negative, blood negative, nitrite positive, wbc many, microscopic wbc 1284 and urine bacteria moderate. Urine drug screen positive for benzodiazepine, acetaminophen level 58, methadone screen negative and salicylates are less than 1. IMPRESSION: 1. Neurologic: Septic, toxic encephalopathy. Drug screen positive for benzodiazepine. Urine positive for wbc and rbc with nitrite suggesting urinary tract infection. History of anxiety/bipolar disorder, on trazodone. 2. Pulmonary: X-ray reportedly shows no acute infiltrate. 3. Cardiac: Normal sinus rhythm, remains normotensive. 4. Gastrointestinal: Liver function tests elevated with AST 84, ALT 71, rule out fatty liver, rule out hepatotoxicity related to Tylenol. 5. Infectious Disease: Possible urinary tract infection, rule out aspiration pneumonia. 6. Endocrine: No history of diabetes or hypothyroidism. 7. Hematology: Normal hemoglobin and hematocrit. PLAN: Continue IV fluid with D5 half-normal with potassium chloride at 40 mL/hour. Keep head of bed at 30 degree up. Protonix 40 IV daily, Rocephin 1 g IV daily. Follow up blood and urine culture. Lovenox 40 mg subQ daily. Follow TSH level, magnesium, phosphorous and we will also continue acetylcysteine to complete the course for suspected chronic Tylenol ingestion. Sukhi Collins MD [facility]
[2017-04-20 08:16] LABS: BASO % 0.3 % (0.0-2.0); EOS # 0.2 K/uL (0.0-0.7); EOS % 1.6 % (0.0-4.0); HEMATOCRIT 37.4 % (34.0-47.0); LYMPH % 14.7 % (20.0-40.0); MEAN CELL VOLUME 92.3 fl (81.0-99.0); MEAN CORPUSCULAR HEMOGLOBIN 31.7 pg (27.0-31.0); MEAN CORPUSCULAR HGB CONC 34.4 g/dL (33.0-37.0); MEAN PLATELET VOLUME 9.8 fl (7.2-11.7); MONO % 7.2 % (0.0-10.0); NEUT # 10.2 K/uL (1.8-7.0); NEUT % 76.2 % (50.0-75.0); NRBC % 0.1 % (0.0-0.0); RED CELL DISTRIBUTION WIDTH 12.7 % (11.5-14.5); WHITE BLOOD COUNT 13.3 K/uL (4.8-10.8)
--- NOTE | 2017-04-20 09:03 | CP.CCUPN ---
CCU Subjective - Physician Review Subjective (Free Text): Patient is easily arousable from sleep and responsive; speech not slurred as previously described, no distress noted, denies any new focal weakness, no weakness noted now in left extremities as previously described. She denies any headaches, dizziness, n/v, visual changes, chest discomfort, SOB, fevers or chills. Left arm and hand are still mildly swollen, denies any joint pain. No fever spikes overnight, SBP ranging from 180's to low 100's. HR nontachycardic. SPo2 98% on RA. Nurses report that daughter called and stating that patient is very manipulative, and has had suicidal thoughts in the past. ROS: no other pertinent negs or positives on 10+ system review. Other PMSFH: All recent nursing and physician documentation reviewed and no new information noted relevant to current problems. MAJOR IMPRESSIONS: 1. Acute CVA with left hemiparesis- resolved 2. Acetaminophen Toxicity / OD 3. Borderline Hyponatremia 4. Hypokalemia 5. Chronic BZDP use PLAN: 1. Repeat CT Brain imaging after 24h or MRI Brain. Consider formal Neurology eval. 2. Maintain IVF hydration. LUE elevation, consider venous Doppler US study to r/o - SVT/DVT if no further improvement in Left arm. 3. Nearing completion of Acetadote therapy, LFTS being monitored. 4. Other Home psychotropic med on hold for now. 5. K repleted, normal Mag/Phos levels noted. 6. Stable for stepdown bed. CCU Objective - Vital Signs / Intake & Output Vital Signs (Last 4 hours): Vital Signs Temp Pulse Resp BP Pulse Ox 04/20/17 08:07 97.9 F 66 16 169/83 H 97 04/20/17 06:00 62 15 158/68 H 96 Intake and Output (Last 8hrs): Intake & Output 04/19/17 04/20/17 04/20/17 22:59 06:59 14:59 Intake Total 690 839 Output Total 220 1050 Balance 470 -211 Intake: IV 490 839 Intake, Piggyback 200 Output: Urine 220 1050 Urethral (Marshall) 220 1050 Other: # Bowel Movements 1 - Physical Exam Head: Positive for: Normocephalic Pupils: Positive for: PERRL Extroacular Muscles: Positive for: EOMI Conjunctiva: Negative for: Injected, Icteric Mouth: Positive for: Moist Mucous Membranes Respiratory/Chest: Positive for: Clear to Auscultation. Negative for: Wheezes Cardiovascular: Positive for: Regular Rate and Rhythm. Negative for: Murmurs, Rub Abdomen: Positive for: Normal Bowel Sounds. Negative for: Tenderness, Distention Upper Extremity: Positive for: Edema (minimal edema and swelling L hand and L arm.) Lower Extremity: Negative for: CALF TENDERNESS, Cyanosis Neurological: Positive for: GCS=15, Motor Func Grossly Intact, Normal Sensory Function, Norm Deep Tendon Reflexes Skin: Positive for: Warm. Negative for: Rashes Psychiatric: Positive for: Alert, Oriented x 3, Normal Mood. Negative for: Suicidal Ideation, Delusional, Hallucinations - Medications Active Medications: Active Medications Generic Name Dose Route Start Last Admin Trade Name Freq PRN Reason Stop Dose Admin Enoxaparin Sodium 40 mg 04/19/17 17:00 04/19/17 18:21 Lovenox SC 40 mg DAILY TETE Administration Protocol Ceftriaxone Sodium 1 gm/ 100 mls @ 200 mls/hr 04/19/17 17:00 04/19/17 18:23 Sodium Chloride IVPB Not Given DAILY TETE Potassium Chloride/Dextrose/Sod Cl 1,000 mls @ 80 mls/hr 04/19/17 17:30 04/19 18:21 Potassium Chl 40 Meq In D5-1/2ns IV 04/20/17 17:17 80 mls/hr .[id number] TETE Administration Acetylcysteine 7,710 mg/ 1,038.55 mls @ 62.5 mls/hr 04/20/17 00:29 04/20/17 01:00 Dextrose IVPB 04/20/17 17:05 62.5 mls/hr ONCE ONE Administration Pantoprazole Sodium 40 mg 04/19/17 17:00 04/19/17 18:26 Protonix Inj IVP 40 mg DAILY TETE Administration - Patient Studies Lab Studies: Lab Studies 04/20/17 04/20/17 04/19/17 Range/Units 06:00 00:00 22:00 WBC 13.3 H (4.8-10.8) K/uL RBC 4.05 (3.80-5.20) Mil/uL Hgb 12.8 (12.0-16.0) g/dL Hct 37.4 (34.0-47.0) % MCV 92.3 (81.0-99.0) fl MCH 31.7 H (27.0-31.0) pg MCHC 34.4 (33.0-37.0) g/dL RDW 12.7 (11.5-14.5) % Plt Count 285 (130-400) K/uL MPV 9.8 (7.2-11.7) fl Neut % (Auto) 76.2 H (50.0-75.0) % Lymph % (Auto) 14.7 L (20.0-40.0) % Garvin % (Auto) 7.2 (0.0-10.0) % Eos % (Auto) 1.6 (0.0-4.0) % Baso % (Auto) 0.3 (0.0-2.0) % Neut # 10.2 H (1.8-7.0) K/uL Lymph # 2.0 (1.0-4.3) K/uL Garvin # 1.0 H (0.0-0.8) K/uL Eos # 0.2 (0.0-0.7) K/uL Baso # 0.0 (0.0-0.2) K/uL pCO2 (35-45) mm/Hg pO2 (80-100) mm/Hg HCO3 (21-28) mmol/L ABG pH (7.35-7.45) ABG Total CO2 (22-28) mmol/L ABG O2 Saturation (95-98) % ABG O2 Content (15-23) ML/dL ABG Base Excess (-2.0-3.0) mmol/L ABG Hemoglobin (11.7-17.4) g/dL ABG Carboxyhemoglobin (0.5-1.5) % POC ABG HHb (Measured) (0.0-5.0) % ABG Methemoglobin (0.0-3.0) % ABG O2 Capacity (16-24) mL/dL Geovanny Test A-a O2 Difference mm/Hg Hgb O2 Saturation (95.0-98.0) % FiO2 % Phosphorus (2.5-4.5) mg/dl Magnesium (1.6-2.3) MG/DL TSH 3rd Generation (0.46-4.68) mIU/ML Urine Opiates Screen Negative (NEGATIVE) Urine Methadone Screen Negative (NEGATIVE) Acetaminophen < 10.0 L (10.0-30.0) ug/ml Ur Barbiturates Screen Negative (NEGATIVE) Ur Phencyclidine Scrn Negative (NEGATIVE) Ur Amphetamines Screen Negative (NEGATIVE) U Benzodiazepines Scrn Positive H (NEGATIVE) U Oth Cocaine Metabols Negative (NEGATIVE) U Cannabinoids Screen Negative (NEGATIVE) 04/19/17 04/19/17 04/19/17 Range/Units 20:00 18:48 17:05 WBC (4.8-10.8) K/uL RBC (3.80-5.20) Mil/uL Hgb (12.0-16.0) g/dL Hct (34.0-47.0) % MCV (81.0-99.0) fl MCH (27.0-31.0) pg MCHC (33.0-37.0) g/dL RDW (11.5-14.5) % Plt Count (130-400) K/uL MPV (7.2-11.7) fl Neut % (Auto) (50.0-75.0) % Lymph % (Auto) (20.0-40.0) % Garvin % (Auto) (0.0-10.0) % Eos % (Auto) (0.0-4.0) % Baso % (Auto) (0.0-2.0) % Neut # (1.8-7.0) K/uL Lymph # (1.0-4.3) K/uL Garvin # (0.0-0.8) K/uL Eos # (0.0-0.7) K/uL Baso # (0.0-0.2) K/uL pCO2 31 L (35-45) mm/Hg pO2 93 (80-100) mm/Hg HCO3 21.9 (21-28) mmol/L ABG pH 7.41 (7.35-7.45) ABG Total CO2 20.6 L (22-28) mmol/L ABG O2 Saturation 100.2 H (95-98) % ABG O2 Content 20.5 (15-23) ML/dL ABG Base Excess -3.8 L (-2.0-3.0) mmol/L ABG Hemoglobin 15.4 (11.7-17.4) g/dL ABG Carboxyhemoglobin 3.3 H (0.5-1.5) % POC ABG HHb (Measured) -0.2 L (0.0-5.0) % ABG Methemoglobin 2.5 (0.0-3.0) % ABG O2 Capacity 20.5 (16-24) mL/dL Geovanny Test Yes A-a O2 Difference 18.0 mm/Hg Hgb O2 Saturation 94.5 L (95.0-98.0) % FiO2 21.0 % Phosphorus 3.2 (2.5-4.5) mg/dl Magnesium 1.8 (1.6-2.3) MG/DL TSH 3rd Generation 0.47 (0.46-4.68) mIU/ML Urine Opiates Screen (NEGATIVE) Urine Methadone Screen (NEGATIVE) Acetaminophen 13.0 (10.0-30.0) ug/ml Ur Barbiturates Screen (NEGATIVE) Ur Phencyclidine Scrn (NEGATIVE) Ur Amphetamines Screen (NEGATIVE) U Benzodiazepines Scrn (NEGATIVE) U Oth Cocaine Metabols (NEGATIVE) U Cannabinoids Screen (NEGATIVE) Laboratory Results - last 24 hr 04/19/17 04/19/17 04/19/17 17:05 18:48 20:00 WBC RBC Hgb Hct MCV MCH MCHC RDW Plt Count MPV Neut % (Auto) Lymph % (Auto) Garvin % (Auto) Eos % (Auto) Baso % (Auto) Neut # Lymph # Garvin # Eos # Baso # pCO2 31 L pO2 93 HCO3 21.9 ABG pH 7.41 ABG Total CO2 20.6 L ABG O2 Saturation 100.2 H ABG O2 Content 20.5 ABG Base Excess -3.8 L ABG Hemoglobin 15.4 ABG Carboxyhemoglobin 3.3 H POC ABG HHb (Measured) -0.2 L ABG Methemoglobin 2.5 ABG O2 Capacity 20.5 Geovanny Test Yes A-a O2 Difference 18.0 Hgb O2 Saturation 94.5 L FiO2 21.0 Phosphorus 3.2 Magnesium 1.8 TSH 3rd Generation 0.47 Urine Opiates Screen Urine Methadone Screen Acetaminophen 13.0 Ur Barbiturates Screen Ur Phencyclidine Scrn Ur Amphetamines Screen U Benzodiazepines Scrn U Oth Cocaine Metabols U Cannabinoids Screen 04/19/17 04/20/17 04/20/17 22:00 00:00 06:00 WBC 13.3 H RBC 4.05 Hgb 12.8 Hct 37.4 MCV 92.3 MCH 31.7 H MCHC 34.4 RDW 12.7 Plt Count 285 MPV 9.8 Neut % (Auto) 76.2 H Lymph % (Auto) 14.7 L Garvin % (Auto) 7.2 Eos % (Auto) 1.6 Baso % (Auto) 0.3 Neut # 10.2 H Lymph # 2.0 Garvin # 1.0 H Eos # 0.2 Baso # 0.0 pCO2 pO2 HCO3 ABG pH ABG Total CO2 ABG O2 Saturation ABG O2 Content ABG Base Excess ABG Hemoglobin ABG Carboxyhemoglobin POC ABG HHb (Measured) ABG Methemoglobin ABG O2 Capacity Geovanny Test A-a O2 Difference Hgb O2 Saturation FiO2 Phosphorus Magnesium TSH 3rd Generation Urine Opiates Screen Negative Urine Methadone Screen Negative Acetaminophen < 10.0 L Ur Barbiturates Screen Negative Ur Phencyclidine Scrn Negative Ur Amphetamines Screen Negative U Benzodiazepines Scrn Positive H U Oth Cocaine Metabols Negative U Cannabinoids Screen Negative Fingerstick Blood Sugar Results: 152 Critical Care Progress Note - Extremities/Vascular Does the Patient have a Marshall Catheter?: Yes Does the Patient need a Marshall Catheter?: No - Prophylaxis GI Prophylaxis GI: PPI - Prophylaxis DVT Prophylaxis DVT: Lovenox
[2017-04-20] MEDS: Enoxaparin 40 mg Syringe SC SCH (09:31)
[2017-04-20 10:04] LABS: ALB/GLOB RATIO 1.3 (1.0-2.1); ALKALINE PHOSPHATASE 75 U/L (38-126); ALT/SGPT 110 U/L (9-52); AST/SGOT 87 U/L (14-36); BILIRUBIN,TOTAL 0.5 mg/dl (0.2-1.3); BLOOD UREA NITROGEN 6 mg/dl (7-17); CALCIUM 8.9 mg/dL (8.4-10.2); CARBON DIOXIDE 20 mmol/L (22-30); CHLORIDE 101 mmol/L (98-107); GFR AFRICAN-AMERICAN > 60; GLUCOSE,RANDOM 134 mg/dL (65-105); SODIUM 135 mmol/l (132-148); TOTAL PROTEIN 6.7 G/DL (6.3-8.2)
--- NOTE | 2017-04-20 10:19 | CARD ---
APPROVED REPORT EKG Measurement Heart [id number] <Conclusion> Sinus bradycardia Voltage criteria for left ventricular hypertrophy Abnormal ECG
[2017-04-20 10:22] LABS: POTASSIUM 2.8 MMOL/L (3.6-5.0)
[2017-04-20] MEDS: Potassium Chloride 20 mEq/15 ml LIQ UD PO SCH ×2 (11:45→17:33)
[2017-04-20] MEDS: Potassium CL 10mEq/100ml 100 ML IVPB SCH ×4 (11:46→16:00)
--- NOTE | 2017-04-20 13:43 | CP.PCM.CON ---
History of Present Illness - History of Present Illness History of Present Illness: This is a 76 yr old female with no clear h/o mental illness admitted for change of mental illness and being treated for same and also found that pt overdosed on unknown no of tylenol and psych consult requested for this reason. pt minimises her depression and says that she took 4 pills only given by dr cobb.As per family,daughter in law and son ,pt has ingested a large amount and has h/o multiple suicidal attempts due to severe depression and always denies it upon admission..pt was admitted to 3 in atleast twice in past for severe depression and suicidal attempt . Past Patient History - Past Medical History & Family History Past Medical History?: Yes - Past Social History Smoking Status: Unknown If Ever Smoked - CARDIAC Hx Hypercholesterolemia: Yes Hx Hypertension: Yes - PULMONARY Hx Respiratory Disorders: No Hx Tuberculosis: No - NEUROLOGICAL Hx Dementia: Yes Hx Seizures: No - HEENT Hx HEENT Problems: No - RENAL Hx Chronic Kidney Disease: No - ENDOCRINE/METABOLIC Hx Endocrine Disorders: No - HEMATOLOGICAL/ONCOLOGICAL Hx Human Immunodeficiency Virus (HIV): No - INTEGUMENTARY Hx Dermatological Problems: No - MUSCULOSKELETAL/RHEUMATOLOGICAL Hx Arthritis: Yes Hx Falls: No - GASTROINTESTINAL Hx Gastrointestinal Disorders: No - GENITOURINARY/GYNECOLOGICAL Hx Sexually Transmitted Disorders: No - PSYCHIATRIC Hx Anxiety: Yes Hx Bipolar Disorder: Yes Hx Depression: Yes Hx Substance Use: No - SURGICAL HISTORY Hx Surgeries: Yes Hx Hysterectomy: Yes Other/Comment: Colonoscopy - ANESTHESIA Hx Anesthesia: Yes Hx Anesthesia Reactions: No Hx Malignant Hyperthermia: No Meds Allergies/Adverse Reactions: Allergies Allergy/AdvReac Type Severity Reaction Status Date / Time No Known Allergies Allergy Verified 04/19/17 12:02 - Medications Medications: Current Medications Enoxaparin Sodium (Lovenox) 40 mg SC DAILY COUNT INCLUDES THE [facility] PRN Reason: Protocol Last Admin: 04/20/17 09:31 Dose: 40 mg Famotidine (Pepcid) 40 mg PO HS COUNT INCLUDES THE [facility] Ceftriaxone Sodium 1 gm/ (Sodium Chloride) 100 mls @ 200 mls/hr IVPB DAILY COUNT INCLUDES THE [facility] Last Admin: 04/20/17 09:33 Dose: 200 mls/hr Potassium Chloride/Dextrose/Sod Cl (Potassium Chl 40 Meq In D5-1/2ns) 1,000 mls @ 80 mls/hr IV .[id number] COUNT INCLUDES THE [facility] Stop: 04/20/17 17:17 Last Admin: 04/19/17 18:21 Dose: 80 mls/hr Acetylcysteine 7,710 mg/ (Dextrose) 1,038.55 mls @ 62.5 mls/hr IVPB ONCE ONE Stop: 04/20/17 17:05 Last Admin: 04/20/17 01:00 Dose: 62.5 mls/hr Potassium Chloride (Potassium Chloride 10 Meq/100 Ml) 100 mls @ 100 mls/hr IVPB Q1 TETE Stop: 04/20/17 14:59 Last Admin: 04/20/17 11:46 Dose: 100 mls/hr Potassium Chloride (Potassium Chloride Oral Soln) 20 meq PO Q8 TETE Stop: 04/21/17 01:01 Last Admin: 04/20/17 11:45 Dose: 20 meq Trazodone HCl (Desyrel) 50 mg PO HS TETE Physical Exam - Psychiatric Exam Psychiatric exam: Depressed, Flat Affect Additional comments: pt appears very lethargic and speech somewhat slurred and only focus on her medical issues of pain.pt denies any depression.she is a poor historian.pt wants to be d/c and has poor insight and poor judgement .pt has been uncooperative and refusing to answer questions about her depression and wont say yes or no when i asked about current suicidal ideation and no overt psychosis noted and cognition could not be tested as pt is very lethargic with slurred speech - Skin Skin Exam: Dry, Intact, Normal Color, Warm Results - Vital Signs Recent Vital Signs: Last Vital Signs Temp 97.9 F 04/20/17 08:07 Pulse 66 04/20/17 08:07 Resp 16 04/20/17 08:07 BP 169/83 H 04/20/17 08:07 Pulse Ox 97 04/20/17 08:07 - Labs Result Diagrams: 04/21/17 04:20 04/21/17 04:20 Labs: Laboratory Results - last 24 hr 04/19/17 04/19/17 04/19/17 17:05 18:48 20:00 WBC RBC Hgb Hct MCV MCH MCHC RDW Plt Count MPV Neut % (Auto) Lymph % (Auto) [place] % (Auto) Eos % (Auto) Baso % (Auto) Neut # Lymph # [place] # Eos # Baso # pCO2 31 L pO2 93 HCO3 21.9 ABG pH 7.41 ABG Total CO2 20.6 L ABG O2 Saturation 100.2 H ABG O2 Content 20.5 ABG Base Excess -3.8 L ABG Hemoglobin 15.4 ABG Carboxyhemoglobin 3.3 H POC ABG HHb (Measured) -0.2 L ABG Methemoglobin 2.5 ABG O2 Capacity 20.5 Geovanny Test Yes A-a O2 Difference 18.0 Hgb O2 Saturation 94.5 L FiO2 21.0 Sodium Potassium Chloride Carbon Dioxide Anion Gap BUN Creatinine Est GFR ( Amer) Est GFR (Non-Af Amer) Random Glucose Calcium Phosphorus 3.2 Magnesium 1.8 Total Bilirubin AST ALT Alkaline Phosphatase Total Protein Albumin Globulin Albumin/Globulin Ratio TSH 3rd Generation 0.47 Urine Opiates Screen Urine Methadone Screen Acetaminophen 13.0 Ur Barbiturates Screen Ur Phencyclidine Scrn Ur Amphetamines Screen U Benzodiazepines Scrn U Oth Cocaine Metabols U Cannabinoids Screen 04/19/17 04/20/17 04/20/17 22:00 00:00 06:00 WBC 13.3 H RBC 4.05 Hgb 12.8 Hct 37.4 MCV 92.3 MCH 31.7 H MCHC 34.4 RDW 12.7 Plt Count 285 MPV 9.8 Neut % (Auto) 76.2 H Lymph % (Auto) 14.7 L [place] % (Auto) 7.2 Eos % (Auto) 1.6 Baso % (Auto) 0.3 Neut # 10.2 H Lymph # 2.0 [place] # 1.0 H Eos # 0.2 Baso # 0.0 pCO2 pO2 HCO3 ABG pH ABG Total CO2 ABG O2 Saturation ABG O2 Content ABG Base Excess ABG Hemoglobin ABG Carboxyhemoglobin POC ABG HHb (Measured) ABG Methemoglobin ABG O2 Capacity Geovanny Test A-a O2 Difference Hgb O2 Saturation FiO2 Sodium Potassium Chloride Carbon Dioxide Anion Gap BUN Creatinine Est GFR ( Amer) Est GFR (Non-Af Amer) Random Glucose Calcium Phosphorus Magnesium Total Bilirubin AST ALT Alkaline Phosphatase Total Protein Albumin Globulin Albumin/Globulin Ratio TSH 3rd Generation Urine Opiates Screen Negative Urine Methadone Screen Negative Acetaminophen < 10.0 L Ur Barbiturates Screen Negative Ur Phencyclidine Scrn Negative Ur Amphetamines Screen Negative U Benzodiazepines Scrn Positive H U Oth Cocaine Metabols Negative U Cannabinoids Screen Negative 04/20/17 06:00 WBC RBC Hgb Hct MCV MCH MCHC RDW Plt Count MPV Neut % (Auto) Lymph % (Auto) [place] % (Auto) Eos % (Auto) Baso % (Auto) Neut # Lymph # [place] # Eos # Baso # pCO2 pO2 HCO3 ABG pH ABG Total CO2 ABG O2 Saturation ABG O2 Content ABG Base Excess ABG Hemoglobin ABG Carboxyhemoglobin POC ABG HHb (Measured) ABG Methemoglobin ABG O2 Capacity Geovanny Test A-a O2 Difference Hgb O2 Saturation FiO2 Sodium 135 Potassium 2.8 L Chloride 101 Carbon Dioxide 20 L Anion Gap 17 BUN 6 L Creatinine 0.6 L Est GFR ( Amer) > 60 Est GFR (Non-Af Amer) > 60 Random Glucose 134 H Calcium 8.9 Phosphorus Magnesium Total Bilirubin 0.5 AST 87 H ALT 110 H D Alkaline Phosphatase 75 Total Protein 6.7 Albumin 3.8 Globulin 2.9 Albumin/Globulin Ratio 1.3 TSH 3rd Generation Urine Opiates Screen Urine Methadone Screen Acetaminophen Ur Barbiturates Screen Ur Phencyclidine Scrn Ur Amphetamines Screen U Benzodiazepines Scrn U Oth Cocaine Metabols U Cannabinoids Screen Assessment & Plan - Assessment and Plan (Free Text) Assessment: A/P : major depression,recurrent ,severe Plan: Plan : continue 1:1 observation pt will benefit from inpt psych voluntary admission when medically stable psych reevaluation in am regarding further disposition when pt is more alert and can be engaged in an interview .
--- NOTE | 2017-04-20 16:46 | RAD ---
PROCEDURE: Left hand 04/19/2017 HISTORY: Status post fall with swelling. COMPARISON: No prior FINDINGS: Current study reveals no definitive radiographic evidence of acute displaced fracture nor dislocation. The osseous structures appear intact. Triscaphe degenerative changes are present. There also degenerative changes of the greater multangular and first metacarpal articulation. 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 Degenerative changes of the radiocarpal articulation Questionable mild soft tissue swelling most pronounced involving the 2nd digit. If symptoms persist or occult fracture suspected clinically recommend repeat radiographs 5-10 days as most fractures should become radiographically evident this timeframe. Alternatively, consider followup CT scan for further evaluation. Impression: Multi articular DJD. No definitive fracture. Follow-up radiographs some or CT scan could be performed for further evaluation if necessary as detailed above.
[2017-04-21] MEDS: Potassium Chloride 20 mEq/15 ml LIQ UD PO SCH (00:05)
[2017-04-21 05:58] LABS: BASO # 0.1 K/uL (0.0-0.2); BASO % 0.8 % (0.0-2.0); EOS # 0.2 K/uL (0.0-0.7); EOS % 1.6 % (0.0-4.0); HEMATOCRIT 39.5 % (34.0-47.0); LYMPH # 2.5 K/uL (1.0-4.3); LYMPH % 19.9 % (20.0-40.0); MEAN CELL VOLUME 91.5 fl (81.0-99.0); MEAN CORPUSCULAR HEMOGLOBIN 31.5 pg (27.0-31.0); MEAN CORPUSCULAR HGB CONC 34.4 g/dL (33.0-37.0); MEAN PLATELET VOLUME 9.4 fl (7.2-11.7); MONO # 1.3 K/uL (0.0-0.8); MONO % 10.3 % (0.0-10.0); NEUT # 8.6 K/uL (1.8-7.0); NEUT % 67.4 % (50.0-75.0); NRBC % 0.2 % (0.0-0.0); RED CELL DISTRIBUTION WIDTH 12.7 % (11.5-14.5); WHITE BLOOD COUNT 12.8 K/uL (4.8-10.8)
[2017-04-21 06:31] LABS: ALB/GLOB RATIO 1.3 (1.0-2.1); ALKALINE PHOSPHATASE 86 U/L (38-126); ALT/SGPT 174 U/L (9-52); AST/SGOT 159 U/L (14-36); BILIRUBIN,TOTAL 0.5 mg/dl (0.2-1.3); BLOOD UREA NITROGEN 3 mg/dl (7-17); CALCIUM 9.4 mg/dL (8.4-10.2); CARBON DIOXIDE 23 mmol/L (22-30); CHLORIDE 110 mmol/L (98-107); GFR AFRICAN-AMERICAN > 60; GLUCOSE,RANDOM 118 mg/dL (65-105); MAGNESIUM 1.7 MG/DL (1.6-2.3); PHOSPHOROUS 1.2 mg/dl (2.5-4.5); POTASSIUM 3.8 MMOL/L (3.6-5.0); SODIUM 141 mmol/l (132-148); TOTAL PROTEIN 6.5 G/DL (6.3-8.2)
[2017-04-21] MEDS ORDERED: Pneumococcal 23-Valent Vaccine IM ONE (07:54)
--- NOTE | 2017-04-21 08:31 | HP ---
HISTORY OF PRESENT ILLNESS: is a 76-year-old female who was admitted via the emergency room after she was brought to the ER because she was found by saw superintendent in her building slant over, had slurred speech and was confused. She was admitted with altered mental status to rule out transient ischemic attack plus workup indicated that she had taken lots of Tylenol and most of her problems have come from probable drug overdose. She appears alert, somewhat oriented, but confused to time and place. PAST MEDICAL HISTORY: As obtained from family, [id number] indicates that the patient has a history of psych problems and has been to multiple hospitals in the past. FAMILY HISTORY: Unobtainable. SOCIAL HISTORY: The patient lives alone and does not smoke or drink. REVIEW OF SYSTEMS: Unobtainable. PHYSICAL EXAMINATION GENERAL: The patient is alert, confused to person and place. VITAL SIGNS: Blood pressure 169/83, pulse of 66, respiratory rate 16, O2 sat 97% on room air. SKIN: Fair turgor. FACE: The patient has permanent eyebrow tattoos and lip tattoos. Skin shows tattoos over the chest wall but normal turgor. HEENT: Pupils are equal and reactive to light and accommodation. JVP flat. LUNGS: Clear. HEART: Regular. No murmurs, rubs or gallops. ABDOMEN: Soft, nontender. No organomegaly. EXTREMITIES: Show skin ____ of the knees and legs. GENITAL: Unremarkable. RECTAL: Unremarkable. CENTRAL NERVOUS SYSTEM: The patient appears to have no gross neuro deficits compared to date of admission. There are no residual neurologic deficit. LABORATORY DATA: Remarkable for WBC of 18.5 down to 13.3, hemoglobin 12.8, platelet count 285,000. ABGs; pH 7.41, pCO2 of 31, pO2 of 93, O2 sat 100% on 21% of FiO2. Sodium 132, potassium 2.7, BUN of 9, creatinine is 0.6, serum glucose 152, AST 84, ALT 71. Toxicology urine is positive for acetaminophen [address] scan of the brain; moderate diffuse white matter changes, otherwise unremarkable. Moderate volume loss. EKG; sinus bradycardia, LVH by voltage. Chest x-ray, poor inspiratory volume, crowded bronchovascular markings, mild bibasilar atelectasis, left greater than right. All other x-rays of extremities are unremarkable. CT scan of the cervical spine; no acute fractures, multilevel degenerative spondylolysis, most significant at C6-7 and C5-6. IMPRESSION: Altered mental status, probably secondary to drug overdose (benzodiazepines and Tylenol). No evidence of acute cerebrovascular accident is present. Changes of questionable transient ischemic attack have resolved since admission, hyponatremia, hypokalemia noted, chronic benzodiazepine use, throat problems, psychiatric problems, PLAN: The plan is IV hydration, electrolyte supplementation. We will obtain psychiatric evaluation Geropsych if accepted. Sergey Carr MD
--- NOTE | 2017-04-21 09:25 | CP.PCM.PN ---
Subjective - Date & Time of Evaluation Date of Evaluation: 04/21/17 Time of Evaluation: 09:25 - Subjective Subjective: VERY INAPPROPRIATE AFFECT Objective - Vital Signs/Intake and Output Vital Signs (last 24 hours): Temp Pulse Resp BP Pulse Ox 98.8 F 96 H 11 L 140/94 H 99 04/21/17 08:00 04/21/17 08:00 04/21/17 08:00 04/21/17 08:00 04/21/17 08:00 Intake and Output: 04/21/17 04/21/17 06:59 18:59 Intake Total 440 Output Total 500 Balance -60 - Medications Medications: Current Medications Enoxaparin Sodium (Lovenox) 40 mg SC DAILY [facility] PRN Reason: Protocol Last Admin: 04/20/17 09:31 Dose: 40 mg Famotidine (Pepcid) 40 mg PO HS [facility] Last Admin: 04/20/17 22:23 Dose: 40 mg Ceftriaxone Sodium 1 gm/ (Sodium Chloride) 100 mls @ 200 mls/hr IVPB DAILY [facility] Last Admin: 04/20/17 09:33 Dose: 200 mls/hr Trazodone HCl (Desyrel) 50 mg PO [facility] Last Admin: 04/20/17 22:23 Dose: 50 mg - Labs Labs: 04/21/17 04:20 04/21/17 04:20 PT 12.6 Seconds (9.8-13.1) 04/19/17 12:35 INR 1.2 (0.9-1.2) 04/19/17 12:35 APTT 29.6 Seconds (25.6-37.1) 04/19/17 12:35 - Constitutional Appears: Chronically Ill - Head Exam Head Exam: ATRAUMATIC, NORMAL INSPECTION, NORMOCEPHALIC - Eye Exam Eye Exam: EOMI, Normal appearance, PERRL Pupil Exam: NORMAL ACCOMODATION, PERRL - ENT Exam ENT Exam: Mucous Membranes Moist, Normal Exam - Neck Exam Neck Exam: Full ROM, Normal Inspection. absent: Lymphadenopathy - Respiratory Exam Respiratory Exam: Clear to Ausculation Bilateral, NORMAL BREATHING PATTERN - Cardiovascular Exam Cardiovascular Exam: REGULAR RHYTHM, +S1, +S2. absent: Murmur - GI/Abdominal Exam GI & Abdominal Exam: Soft, Normal Bowel Sounds. absent: Tenderness - Rectal Exam Rectal Exam: NORMAL INSPECTION - Extremities Exam Extremities Exam: Full ROM, Normal Capillary Refill, Normal Inspection. absent : Joint Swelling, Pedal Edema - Back Exam Back Exam: NORMAL INSPECTION - Neurological Exam Neurological Exam: Alert, Awake, CN II-XII Intact, Normal Gait, Oriented x3 - Psychiatric Exam Psychiatric exam: Normal Affect, Normal Mood - Skin Skin Exam: Dry, Intact, Normal Color, Warm Assessment and Plan - Assessment and Plan (Free Text) Assessment: ALTERED MENTAL STATUS DUE TO DRUG OD ELEVATED LIVER FUNCTION STUDIES DUE TO TYLENOL SUICIDE ATTEMPT Plan: HEPATITIS PROFILE FOR TRANSFER TO [facility] ONCE MEDICALLY CLEARED AND ACCEPTED
--- NOTE | 2017-04-21 10:29 | CP.PCM.CON ---
History of Present Illness - History of Present Illness History of Present Illness: admitted with acute cva and tylenol toxicity referred for ID eval + UTI- ESBL E COli in urine Review of Systems - Constitutional Constitutional: As Per HPI - EENT Eyes: absent: As Per HPI, Blind Spots, Blurred Vision, Change in Vision, Decreased Night Vision, Diplopia, Discharge, Dry Eye, Exophthalmos, Floaters, Irritation, Itchy Eyes, Loss of Peripheral Vision, Pain, Photophobia, Requires Corrective Lenses, Sees Flashes, Spots in Vision, Tunnel Vision, Other Visual Disturbances, Loss of Vision, Other Ears: absent: As Per HPI, Decreased Hearing, Ear Discharge, Ear Pain, Tinnitus, Abnormal Hearing, Disequilibrium, Dizziness, Other Nose/Mouth/Throat: absent: As Per HPI, Epistaxis, Nasal Congestion, Nasal Discharge, Nasal Obstruction, Nasal Trauma, Nose Pain, Post Nasal Drip, Sinus Pain, Sinus Pressure, Bleeding Gums, Change in Voice, Dental Pain, Dry Mouth, Dysphagia, Halitosis, Hoarsness, Lip Swelling, Mouth Lesions, Mouth Pain, Odynophagia, Sore Throat, Throat Swelling, Tongue Swelling, Facial Pain, Neck Pain, Neck Mass, Other - Cardiovascular Cardiovascular: absent: As Per HPI, Acrocyanosis, Chest Pain, Chest Pain at Rest , Chest Pain with Activity, Claudication, Diaphoresis, Dyspnea, Dyspnea on Exertion, Edema, Irregular Heart Rhythm, Pain Radiating to Arm/Neck/Jaw, Leg Edema, Leg Ulcers, Lightheadedness, Orthopnea, Palpitations, Paroxysmal Nocturnal Dyspnea, Pedal Edema, Radiating Pain, Rapid Heart Rate, Slow Heart Rate, Syncope, Other - Respiratory Respiratory: absent: As Per HPI, Cough, Dyspnea, Hemoptysis, Dyspnea on Exertion , Wheezing, Snoring, Stridor, Pain on Inspiration, Chest Congestion, Excessive Mucous Production, Change in Mucous Color, Pain with Coughing, Other - Gastrointestinal Gastrointestinal: absent: As Per HPI, Abdominal Pain, Belching, Bloating, Change in Bowel Habits, Change in Stool Character, Coffee Ground Emesis, Constipation, Cramping, Diarrhea, Dyspepsia, Dysphagia, Early Satiety, Excessive Flatus, Fecal Incontinence, Heartburn, Hematemesis, Hematochezia, Loose Stools, Melena, Nausea, Odynophagia, Temesmus, Vomiting, Other - Genitourinary Genitourinary: As Per HPI - Reproductive: Female Reproductive:Female: absent: As Per HPI, Amenorrhea, Amenorrhea/ Control, Currently Menstual, Cycle <21 Days, Cycle >35 Days, Cycle Variable, Menses 1-7 Days, Menses >/= 8 Days, Menses Variable, Cycle > 4 Weeks Between, No Menses for 6 Months, Heavy Menses, Light Menses, Normal Menses, Spotting Between Cycles , S/P Hysterectomy, Menopausal, Post Menopausal, Premenarche, Abnormal Vaginal Bleeding, Dysmenorrhea, Dyspareunia, Genital Lesions, Genital Pruritis, Pelvic Pain, Prolapse Symptoms, Sexual Dysfunction, Vaginal Discharge, Vaginal Dryness , Vaginal Odor, Vaginal Pruritis, Other - Menstruation Menstruation: absent: As Per HPI, Amenorrhea, Amenorrhea/ Control, Currently Menstual, Cycle <21 Days, Cycle >35 Days, Cycle Variable, Menses 1-7 Days, Menses >/= 8 Days, Menses Variable, Cycle > 4 Weeks Between, No Menses for 6 Months, Heavy Menses, Light Menses, Normal Menses, Spotting Between Cycles , S/P Hysterectomy, Menopausal, Post Menopausal, Premenarche, Abnormal Vaginal Bleeding, Dysmenorrhea, Other - Musculoskeletal Musculoskeletal: absent: As Per HPI, Abnormal Gait, Arthralgias, Atrophy, Back Pain, Deformity, Joint Swelling, Limited Range of Motion, Loss of Height, Muscle Cramps, Muscle Weakness, Myalgias, Neck Pain, Numbness, Radiating Pain into Limb, Stiffness, Tingling, Other - Integumentary Integumentary: absent: As Per HPI, Acne, Alopecia, Bleeding Lesions, Change in Hair, Change in Nails, Change in Pigmentation, Changing Lesions, Dry Skin, Erythema, Furuncle, Hirsutism, Lesions, New Lesions, Non-Healing Lesions, Photosensitivity, Pruritus, Rash, Skin Pain, Skin Ulcer, Sores, Striae, Swelling , Unusual Bruising, Wounds, Jaundice, Other - Neurological Neurological: As Per HPI - Psychiatric Psychiatric: As Per HPI - Endocrine Endocrine: absent: As Per HPI, Change in Body Appearance, Change in Libido, Cold Intolorance, Deepening of Voice, Excessive Sweating, Fatigue, Flushing, Heat Intolorance, Increase in Ring/Shoe/Hat Size, Palpitations, Polydipsia, Polyphagia, Polyuria, Other - Hematologic/Lymphatic Hematologic: absent: As Per HPI, Easy Bleeding, Easy Bruising, Lymphadenopathy, Other Past Patient History - Past Medical History & Family History Past Medical History?: Yes - Past Social History Smoking Status: Unknown If Ever Smoked - CARDIAC Hx Hypercholesterolemia: Yes Hx Hypertension: Yes - PULMONARY Hx Respiratory Disorders: No Hx Tuberculosis: No - NEUROLOGICAL Hx Dementia: Yes Hx Seizures: No - HEENT Hx HEENT Problems: No - RENAL Hx Chronic Kidney Disease: No - ENDOCRINE/METABOLIC Hx Endocrine Disorders: No - HEMATOLOGICAL/ONCOLOGICAL Hx Human Immunodeficiency Virus (HIV): No - INTEGUMENTARY Hx Dermatological Problems: No - MUSCULOSKELETAL/RHEUMATOLOGICAL Hx Arthritis: Yes Hx Falls: No - GASTROINTESTINAL Hx Gastrointestinal Disorders: No - GENITOURINARY/GYNECOLOGICAL Hx Sexually Transmitted Disorders: No - PSYCHIATRIC Hx Anxiety: Yes Hx Bipolar Disorder: Yes Hx Depression: Yes Hx Substance Use: No - SURGICAL HISTORY Hx Surgeries: Yes Hx Hysterectomy: Yes Other/Comment: Colonoscopy - ANESTHESIA Hx Anesthesia: Yes Hx Anesthesia Reactions: No Hx Malignant Hyperthermia: No Meds Allergies/Adverse Reactions: Allergies Allergy/AdvReac Type Severity Reaction Status Date / Time No Known Allergies Allergy Verified 04/19/17 12:02 - Medications Medications: Current Medications Enoxaparin Sodium (Lovenox) 40 mg SC DAILY [facility] PRN Reason: Protocol Last Admin: 04/20/17 09:31 Dose: 40 mg Famotidine (Pepcid) 40 mg PO [facility] Last Admin: 04/20/17 22:23 Dose: 40 mg Ceftriaxone Sodium 1 gm/ (Sodium Chloride) 100 mls @ 200 mls/hr IVPB DAILY [facility] Last Admin: 04/21/17 09:29 Dose: Not Given Trazodone HCl (Desyrel) 50 mg PO [facility] Last Admin: 04/20/17 22:23 Dose: 50 mg Physical Exam - Constitutional Appears: Non-toxic, Chronically Ill - Head Exam Head Exam: ATRAUMATIC, NORMAL INSPECTION, NORMOCEPHALIC - Eye Exam Eye Exam: EOMI, PERRL. absent: Scleral icterus - ENT Exam ENT Exam: Mucous Membranes Dry, Normal External Ear Exam - Neck Exam Neck exam: Negative for: Lymphadenopathy - Respiratory Exam Respiratory Exam: Decreased Breath Sounds, Rhonchi - Cardiovascular Exam Cardiovascular Exam: REGULAR RHYTHM - GI/Abdominal Exam GI & Abdominal Exam: Diminished Bowel Sounds, Distended, Soft. absent: Tenderness - Rectal Exam Rectal Exam: Deferred - Exam Exam: NORMAL INSPECTION - Extremities Exam Extremities exam: Positive for: pedal pulses present. Negative for: calf tenderness, pedal edema, tenderness - Back Exam Back exam: absent: CVA tenderness (L), CVA tenderness (R) - Neurological Exam Neurological exam: Alert, CN II-XII Intact, Oriented x3, Reflexes Normal - Psychiatric Exam Psychiatric exam: Normal Mood - Skin Skin Exam: Dry, Intact Results - Vital Signs Recent Vital Signs: Last Vital Signs Temp 98.8 F 04/21/17 08:00 Pulse 96 H 04/21/17 08:00 Resp 11 L 04/21/17 08:00 BP 140/94 H 04/21/17 08:00 Pulse Ox 99 04/21/17 08:00 - Labs Result Diagrams: 04/21/17 04:20 04/21/17 04:20 Labs: Laboratory Results - last 24 hr 04/19/17 04/21/17 04/21/17 20:00 04:20 04:20 WBC 12.8 H RBC 4.31 Hgb 13.6 Hct 39.5 MCV 91.5 MCH 31.5 H MCHC 34.4 RDW 12.7 Plt Count 313 MPV 9.4 Neut % (Auto) 67.4 Lymph % (Auto) 19.9 L Cook % (Auto) 10.3 H Eos % (Auto) 1.6 Baso % (Auto) 0.8 Neut # 8.6 H Lymph # 2.5 Cook # 1.3 H Eos # 0.2 Baso # 0.1 Sodium 141 Potassium 3.8 Chloride 110 H Carbon Dioxide 23 Anion Gap 12 BUN 3 L Creatinine 0.5 L Est GFR ( Amer) > 60 Est GFR (Non-Af Amer) > 60 Random Glucose 118 H Calcium 9.4 Phosphorus 1.2 L Magnesium 1.7 Total Bilirubin 0.5 AST 159 H D ALT 174 H D Alkaline Phosphatase 86 Total Creatine Kinase 59 Total Protein 6.5 Albumin 3.7 Globulin 2.8 Albumin/Globulin Ratio 1.3 Procalcitonin 42.41 H Acetaminophen 04/21/17 04:20 WBC RBC Hgb Hct MCV MCH MCHC RDW Plt Count MPV Neut % (Auto) Lymph % (Auto) Cook % (Auto) Eos % (Auto) Baso % (Auto) Neut # Lymph # Cook # Eos # Baso # Sodium Potassium Chloride Carbon Dioxide Anion Gap BUN Creatinine Est GFR ( Amer) Est GFR (Non-Af Amer) Random Glucose Calcium Phosphorus Magnesium Total Bilirubin AST ALT Alkaline Phosphatase Total Creatine Kinase Total Protein Albumin Globulin Albumin/Globulin Ratio Procalcitonin Acetaminophen < 10.0 L Assessment & Plan (1) Back pain Status: Acute (2) Fall Status: Acute (3) Urinary tract infection Status: Acute (4) Depression Status: Chronic - Assessment and Plan (Free Text) Assessment: drug OD depression UTI- ESBL + sepsis recc imaging of kidnesys when stable gu eval IV Merrem
[2017-04-21] MEDS: Enoxaparin 40 mg Syringe SC SCH (10:58)
[2017-04-21] MEDS: Meropenem 500 MG in Sodium Chloride 0.9% 100 ML IVPB SCH ×2 (12:57→16:19)
--- NOTE | 2017-04-21 14:49 | CP.PCM.PN ---
Subjective - Date & Time of Evaluation Date of Evaluation: 04/21/17 Time of Evaluation: 14:47 - Subjective Subjective: met with pt. spoke to nurse pt is alert, she is willing to sign into psychiatry unit with prompting. she has a history of depression and with recent overdose. mse: alert, oriented to self. states she is anxious. minimizing her overdose, but is willing to sign into geropsych which indicates some fair insight. thoughts are evasive. denies a/v hallucinations. assessment: mdd, recurrent recommendation: when medically cleared pt can sign into step unit. Objective - Vital Signs/Intake and Output Vital Signs (last 24 hours): Temp Pulse Resp BP Pulse Ox 98.3 F 91 H 12 136/105 H 100 04/21/17 12:00 04/21/17 12:00 04/21/17 12:00 04/21/17 12:00 04/21/17 12:00 Intake and Output: 04/21/17 04/21/17 06:59 18:59 Intake Total 440 120 Output Total 500 Balance -60 120 - Medications Medications: Current Medications Enoxaparin Sodium (Lovenox) 40 mg SC DAILY [facility] PRN Reason: Protocol Last Admin: 04/21/17 10:58 Dose: 40 mg Famotidine (Pepcid) 40 mg PO HS [facility] Last Admin: 04/20/17 22:23 Dose: 40 mg Meropenem 500 mg/ Sodium (Chloride) 100 mls @ 100 mls/hr IVPB Q8 [facility] Last Admin: 04/21/17 12:57 Dose: Not Given Trazodone HCl (Desyrel) 50 mg PO HS [facility] Last Admin: 04/20/17 22:23 Dose: 50 mg - Labs Labs: 04/21/17 04:20 04/21/17 04:20 PT 12.6 Seconds (9.8-13.1) 04/19/17 12:35 INR 1.2 (0.9-1.2) 04/19/17 12:35 APTT 29.6 Seconds (25.6-37.1) 04/19/17 12:35
[2017-04-22] MEDS: Meropenem 500 MG in Sodium Chloride 0.9% 100 ML IVPB SCH ×3 (00:13→17:51)
--- NOTE | 2017-04-22 00:25 | PN ---
DATE: 04/21/2017 LOCATION: The patient is in ICU bed 422. SUBJECTIVE: The patient is seen and evaluated at the bedside. Events since admission reviewed. A 76-year-old female admitted with slurred speech and altered mental status, being now found slept over to bed in her room. CT head was negative. CT of C-spine, x-rays of the pelvis and knees were negative. Noted to have urinary tract infection with ESBL, being seen by ID consult. Remains alert, awake, but agitated and combative at times, seen by psych consult. Awaiting for transfer to geropsychiatric floor due to suspected major depression. PHYSICAL EXAMINATION: VITAL SIGNS: Temperature 98.3, heart rate 91, blood pressure 136/105, respiratory rate 12 to 16, saturations 100% on room air. Intake 1779, output 1870 and negative balance 91. HEAD, EYES, EARS, NOSE AND THROAT: Pupils are reactive. Conjunctivae pink. Sclerae white. NECK: Supple. CHEST: Bilateral breath sounds. Clear to auscultation. HEART: Rhythm regular. S1 and S2 normal intensity. No S3, S4, or gallop. No audible murmur. ABDOMEN: Bowel sounds are present, soft. Liver and spleen are not palpable. Bladder not distended. EXTREMITIES: Unremarkable. CURRENT MEDICATIONS: Lovenox 40 mg subcutaneous daily, Pepcid 40 mg p.o. at bedtime, meropenem 500 mg IV q. 8 hours, trazodone 50 mg p.o. at bedtime. LABORATORY DATA: WBC is 12.8, hemoglobin 13.6, hematocrit 39.5 and platelet count is 330. PT 12.6, INR 1.2, PTT 29.6. SMA-7; sodium 141, potassium 3.8, chloride 110, CO2 of 23, blood urea nitrogen 3, creatinine 0.5, glucose 118, calcium 9.4, phosphorous 1.2, magnesium 1.7, total bilirubin 0.5, AST 159, ALT 174, alkaline phosphatase 86, albumin 3.7 and procalcitonin 42.41. Blood culture, no growth. Urine culture, E. coli ESBL, resistant to ceftriaxone, ampicillin, cefazolin, ciprofloxacin and cefepime, sensitive to imipenem. IMPRESSION: Admitted with toxic septic encephalopathy superimposed on major depression. CT head negative for cerebrovascular accident. Seen by infectious disease consult, started on imipenem for ESBL UTI.. Abnormal liver function tests needs further workup with ultrasound of the liver, gallbladder and hepatitis B and C profile. The patient can be cleared medically and can be transferred [facility] floor. Sukhi Collins MD MTDD
[2017-04-22 07:42] LABS: ALB/GLOB RATIO 1.4 (1.0-2.1); BILIRUBIN,TOTAL 0.7 mg/dl (0.2-1.3); TOTAL PROTEIN 7.3 G/DL (6.3-8.2)
[2017-04-22] MEDS: Enoxaparin 40 mg Syringe SC SCH (09:20)
--- NOTE | 2017-04-22 10:47 | CP.PCM.PN ---
Subjective - Date & Time of Evaluation Date of Evaluation: 04/22/17 Time of Evaluation: 10:53 - Subjective Subjective: MORE ALERT AND ORIENTED TODAY--WAS VERY CONFUSED LAST NIGHT REQUIRING ATIVAN INJECTIONS Objective - Vital Signs/Intake and Output Vital Signs (last 24 hours): Temp Pulse Resp BP Pulse Ox 98.4 F 74 20 105/74 97 04/22/17 07:56 04/22/17 07:56 04/22/17 07:56 04/22/17 07:56 04/22/17 07:56 - Medications Medications: Current Medications Enoxaparin Sodium (Lovenox) 40 mg SC DAILY [facility] PRN Reason: Protocol Last Admin: 04/22/17 09:20 Dose: 40 mg Famotidine (Pepcid) 40 mg PO [facility] Last Admin: 04/21/17 21:36 Dose: 40 mg Meropenem 500 mg/ Sodium (Chloride) 100 mls @ 100 mls/hr IVPB Q8 [facility] Last Admin: 04/22/17 09:19 Dose: 100 mls/hr Quetiapine Fumarate (Seroquel) 12.5 mg PO [facility] PRN PRN Reason: Agitation Trazodone HCl (Desyrel) 50 mg PO [facility] Last Admin: 04/21/17 21:37 Dose: 50 mg - Labs Labs: 04/21/17 04:20 04/21/17 04:20 PT 12.8 Seconds (9.8-13.1) 04/22/17 09:20 INR 1.2 (0.9-1.2) 04/22/17 09:20 APTT 29.6 Seconds (25.6-37.1) 04/19/17 12:35 - Constitutional Appears: No Acute Distress - Head Exam Head Exam: ATRAUMATIC, NORMAL INSPECTION, NORMOCEPHALIC - Eye Exam Eye Exam: EOMI, Normal appearance, PERRL Pupil Exam: NORMAL ACCOMODATION, PERRL - ENT Exam ENT Exam: Mucous Membranes Moist, Normal Exam - Neck Exam Neck Exam: Full ROM, Normal Inspection. absent: Lymphadenopathy - Respiratory Exam Respiratory Exam: Clear to Ausculation Bilateral, NORMAL BREATHING PATTERN - Cardiovascular Exam Cardiovascular Exam: REGULAR RHYTHM, +S1, +S2. absent: Murmur - GI/Abdominal Exam GI & Abdominal Exam: Soft, Normal Bowel Sounds. absent: Tenderness - Rectal Exam Rectal Exam: NORMAL INSPECTION - Extremities Exam Extremities Exam: Full ROM, Normal Capillary Refill, Normal Inspection. absent : Joint Swelling, Pedal Edema - Back Exam Back Exam: NORMAL INSPECTION - Neurological Exam Neurological Exam: Alert, Awake, CN II-XII Intact - Psychiatric Exam Psychiatric exam: Flat Affect - Skin Skin Exam: Dry, Intact, Normal Color, Warm Assessment and Plan - Assessment and Plan (Free Text) Assessment: UTI NO EVIDENCE OF SEPSIS NO RVIDENCE OF CVA/ENCEPHALOPATHY CLINICAL PICTURE IS COMPARTIBLE WITH DRUG OD DRUG OD ABNORMAL LIVER FUNCTION PROBABLY DUE TO DRUG EFFECT Plan: CONTINUE PRESENT RX D/C TRAZADONE OBTAIN AMMONIA LEVEL TRANSFER TO PSYCH ONCE MEDICALLY CLEARED
--- NOTE | 2017-04-22 11:18 | US ---
HISTORY: elevated liver enzymes COMPARISON: None. TECHNIQUE: Sonographic evaluation of the abdomen. FINDINGS: LIVER: Measures 15.4 cm. Normal echogenicity of the liver parenchyma. No mass. No intrahepatic bile duct dilatation. GALLBLADDER: Unremarkable. No gallstones. COMMON BILE DUCT: Measures 4 mm. No stones. No dilatation. PANCREAS: Unremarkable as visualized. No mass. No ductal dilatation. RIGHT KIDNEY: Measures 10.1cm. Normal echogenicity. No calculus, mass, or hydronephrosis. LEFT KIDNEY: Measures 10.7cm. Normal echogenicity. No calculus, mass, or hydronephrosis. SPLEEN: Normal in size and contour. No mass. AORTA: No aneurysmal dilatation. IVC: Unremarkable. OTHER FINDINGS: None. IMPRESSION: Unremarkable abdominal sonogram.
--- NOTE | 2017-04-22 11:46 | CP.PCM.PN ---
Subjective - Date & Time of Evaluation Date of Evaluation: 04/22/17 Time of Evaluation: 09:00 - Subjective Subjective: iv rx in progress weak NAD Objective - Vital Signs/Intake and Output Vital Signs (last 24 hours): Temp Pulse Resp BP Pulse Ox 98.4 F 74 20 105/74 97 04/22/17 07:56 04/22/17 07:56 04/22/17 07:56 04/22/17 07:56 04/22/17 07:56 - Medications Medications: Current Medications Enoxaparin Sodium (Lovenox) 40 mg SC DAILY [facility] PRN Reason: Protocol Last Admin: 04/22/17 09:20 Dose: 40 mg Famotidine (Pepcid) 40 mg PO HS [facility] Last Admin: 04/21/17 21:36 Dose: 40 mg Meropenem 500 mg/ Sodium (Chloride) 100 mls @ 100 mls/hr IVPB Q8 [facility] Last Admin: 04/22/17 09:19 Dose: 100 mls/hr Quetiapine Fumarate (Seroquel) 12.5 mg PO Q8H PRN PRN Reason: Agitation Last Admin: 04/22/17 11:29 Dose: 12.5 mg - Labs Labs: 04/21/17 04:20 04/21/17 04:20 PT 12.8 Seconds (9.8-13.1) 04/22/17 09:20 INR 1.2 (0.9-1.2) 04/22/17 09:20 APTT 29.6 Seconds (25.6-37.1) 04/19/17 12:35 - Constitutional Appears: Non-toxic, Chronically Ill - Head Exam Head Exam: NORMOCEPHALIC - Eye Exam Eye Exam: PERRL - ENT Exam ENT Exam: Mucous Membranes Dry - Neck Exam Neck Exam: absent: Lymphadenopathy - Respiratory Exam Respiratory Exam: Decreased Breath Sounds - Cardiovascular Exam Cardiovascular Exam: REGULAR RHYTHM, +S1, +S2 - GI/Abdominal Exam GI & Abdominal Exam: Distended, Soft - Rectal Exam Rectal Exam: Deferred Assessment and Plan (1) Back pain Status: Acute (2) Fall Status: Acute (3) Urinary tract infection Status: Acute (4) Depression Status: Chronic
[2017-04-23] MEDS: Meropenem 500 MG in Sodium Chloride 0.9% 100 ML IVPB SCH ×2 (00:47→09:11)
[2017-04-23 08:25] LABS: ALB/GLOB RATIO 1.5 (1.0-2.1); BILIRUBIN,TOTAL 0.6 mg/dl (0.2-1.3); TOTAL PROTEIN 7.3 G/DL (6.3-8.2)
[2017-04-23 08:46] VITALS: BP 160/91; PULSE 85; RESP 20; TEMP 97.4; O2SAT 96
--- NOTE | 2017-04-23 09:15 | CP.PCM.PN ---
Subjective - Date & Time of Evaluation Date of Evaluation: 04/23/17 Time of Evaluation: 09:16 - Subjective Subjective: MORE AWAKE AND ALERT AGREES TO GO TO PSYCH Objective - Vital Signs/Intake and Output Vital Signs (last 24 hours): Temp Pulse Resp BP Pulse Ox 97.4 F L 85 20 160/91 H 96 04/23/17 08:46 04/23/17 08:46 04/23/17 08:46 04/23/17 08:46 04/23/17 08:46 - Medications Medications: Current Medications Enoxaparin Sodium (Lovenox) 40 mg SC DAILY [facility] PRN Reason: Protocol Last Admin: 04/22/17 09:20 Dose: 40 mg Famotidine (Pepcid) 40 mg PO HS [facility] Last Admin: 04/22/17 21:55 Dose: 40 mg Meropenem 500 mg/ Sodium (Chloride) 100 mls @ 100 mls/hr IVPB Q8 [facility] Last Admin: 04/23/17 00:47 Dose: 100 mls/hr Quetiapine Fumarate (Seroquel) 12.5 mg PO Q8H PRN PRN Reason: Agitation Last Admin: 04/22/17 21:56 Dose: 12.5 mg - Labs Labs: 04/21/17 04:20 04/21/17 04:20 PT 12.8 Seconds (9.8-13.1) 04/22/17 09:20 INR 1.2 (0.9-1.2) 04/22/17 09:20 APTT 29.6 Seconds (25.6-37.1) 04/19/17 12:35 - Constitutional Appears: Agitated - Head Exam Head Exam: ATRAUMATIC, NORMAL INSPECTION, NORMOCEPHALIC - Eye Exam Eye Exam: EOMI, Normal appearance, PERRL Pupil Exam: NORMAL ACCOMODATION, PERRL - ENT Exam ENT Exam: Mucous Membranes Moist, Normal Exam - Neck Exam Neck Exam: Full ROM, Normal Inspection. absent: Lymphadenopathy - Respiratory Exam Respiratory Exam: Clear to Ausculation Bilateral, NORMAL BREATHING PATTERN - Cardiovascular Exam Cardiovascular Exam: REGULAR RHYTHM, +S1, +S2. absent: Murmur - GI/Abdominal Exam GI & Abdominal Exam: Soft, Normal Bowel Sounds. absent: Tenderness - Rectal Exam Rectal Exam: NORMAL INSPECTION - Extremities Exam Extremities Exam: Full ROM, Normal Capillary Refill, Normal Inspection. absent : Joint Swelling, Pedal Edema - Back Exam Back Exam: NORMAL INSPECTION - Neurological Exam Neurological Exam: Alert, Awake, CN II-XII Intact, Normal Gait, Oriented x3 - Psychiatric Exam Psychiatric exam: Anxious - Skin Skin Exam: Dry, Intact, Normal Color, Warm Assessment and Plan - Assessment and Plan (Free Text) Assessment: ALTERED MENTAL STATUS IMPROVED UTI DRUG OD ABNORMAL LIVER FUNCTIONS PROBABLY DUE TO DRUGS MILD HTN Plan: MEDICALLY CLEARED FOR TRANSFER TO [facility] WILL ASK ID FOR PO ANTIBIOTICS FOR UTI
[2017-04-23] MEDS: Enoxaparin 40 mg Syringe SC SCH (10:26)
--- NOTE | 2017-04-23 10:31 | CP.PCM.PN ---
Subjective - Date & Time of Evaluation Date of Evaluation: 04/23/17 Time of Evaluation: 10:20 - Subjective Subjective: no overnight events Objective - Vital Signs/Intake and Output Vital Signs (last 24 hours): Temp Pulse Resp BP Pulse Ox 97.4 F L 85 20 160/91 H 96 04/23/17 08:46 04/23/17 08:46 04/23/17 08:46 04/23/17 08:46 04/23/17 08:46 - Medications Medications: Current Medications Enoxaparin Sodium (Lovenox) 40 mg SC DAILY [facility] PRN Reason: Protocol Last Admin: 04/23/17 10:26 Dose: 40 mg Famotidine (Pepcid) 40 mg PO HS [facility] Last Admin: 04/22/17 21:55 Dose: 40 mg Meropenem 500 mg/ Sodium (Chloride) 100 mls @ 100 mls/hr IVPB Q8 [facility] Last Admin: 04/23/17 09:11 Dose: 100 mls/hr Quetiapine Fumarate (Seroquel) 12.5 mg PO Q8H PRN PRN Reason: Agitation Last Admin: 04/23/17 10:24 Dose: 12.5 mg - Labs Labs: 04/21/17 04:20 04/21/17 04:20 PT 12.8 Seconds (9.8-13.1) 04/22/17 09:20 INR 1.2 (0.9-1.2) 04/22/17 09:20 APTT 29.6 Seconds (25.6-37.1) 04/19/17 12:35 - Respiratory Exam Respiratory Exam: NORMAL BREATHING PATTERN - Cardiovascular Exam Cardiovascular Exam: REGULAR RHYTHM - GI/Abdominal Exam GI & Abdominal Exam: Soft, Normal Bowel Sounds Assessment and Plan - Assessment and Plan (Free Text) Assessment: 76 yo female with elevated lft lft improving sonogram noted cleared from Gi standpoint to go to psych
--- NOTE | 2017-04-23 12:33 | CP.PCM.PN ---
Subjective - Date & Time of Evaluation Date of Evaluation: 04/23/17 Time of Evaluation: 08:00 - Subjective Subjective: iv rx in progress to cont rx at [facility] Objective - Vital Signs/Intake and Output Vital Signs (last 24 hours): Temp Pulse Resp BP Pulse Ox 97.4 F L 85 20 160/91 H 96 04/23/17 08:46 04/23/17 08:46 04/23/17 08:46 04/23/17 08:46 04/23/17 08:46 - Medications Medications: Current Medications Enoxaparin Sodium (Lovenox) 40 mg SC DAILY [facility] PRN Reason: Protocol Last Admin: 04/23/17 10:26 Dose: 40 mg Famotidine (Pepcid) 40 mg PO HS [facility] Last Admin: 04/22/17 21:55 Dose: 40 mg Meropenem 500 mg/ Sodium (Chloride) 100 mls @ 100 mls/hr IVPB Q8 [facility] Last Admin: 04/23/17 09:11 Dose: 100 mls/hr Quetiapine Fumarate (Seroquel) 12.5 mg PO Q8H PRN PRN Reason: Agitation Last Admin: 04/23/17 10:24 Dose: 12.5 mg - Labs Labs: 04/21/17 04:20 04/21/17 04:20 PT 12.8 Seconds (9.8-13.1) 04/22/17 09:20 INR 1.2 (0.9-1.2) 04/22/17 09:20 APTT 29.6 Seconds (25.6-37.1) 04/19/17 12:35 - Constitutional Appears: Non-toxic, Cachectic - Head Exam Head Exam: NORMOCEPHALIC - Eye Exam Eye Exam: PERRL - ENT Exam ENT Exam: Mucous Membranes Dry - Neck Exam Neck Exam: absent: Lymphadenopathy - Respiratory Exam Respiratory Exam: Decreased Breath Sounds - Cardiovascular Exam Cardiovascular Exam: REGULAR RHYTHM Assessment and Plan (1) Back pain Status: Acute (2) Fall Status: Acute (3) Urinary tract infection Status: Acute (4) Depression Status: Chronic
--- NOTE | 2017-05-10 11:42 | CP.PCM.DIS ---
Provider - Provider Date of Admission: 04/19/17 16:00 Attending physician: Sergey Carr MD Time Spent in preparation of Discharge (in minutes): 30 Diagnosis - Discharge Diagnosis (1) Altered mental status Status: Acute (2) Tylenol overdose Status: Acute (3) UTI (urinary tract infection) Status: Acute (4) Depression Status: Chronic (5) Major depressive disorder Status: Chronic Hospital Course - Lab Results Lab Results: Micro Results 04/19/17 20:00 Blood Blood Culture - Final NO GROWTH AFTER 5 DAYS 04/19/17 20:00 Blood Gram Stain - Final TEST NOT PERFORMED 04/19/17 20:00 Blood Blood Culture - Final NO GROWTH AFTER 5 DAYS 04/19/17 20:00 Blood Gram Stain - Final TEST NOT PERFORMED 04/21/17 07:20 Nose MRSA Culture (Admit) - Final MRSA NOT DETECTED 04/19/17 19:00 Naris MRSA Culture (Admit) - Final MRSA NOT DETECTED Most Recent Lab Values WBC 12.8 K/uL (4.8-10.8) H 04/21/17 04:20 RBC 4.31 Mil/uL (3.80-5.20) 04/21/17 04:20 Hgb 13.6 g/dL (12.0-16.0) 04/21/17 04:20 Hct 39.5 % (34.0-47.0) 04/21/17 04:20 MCV 91.5 fl (81.0-99.0) 04/21/17 04:20 MCH 31.5 pg (27.0-31.0) H 04/21/17 04:20 MCHC 34.4 g/dL (33.0-37.0) 04/21/17 04:20 RDW 12.7 % (11.5-14.5) 04/21/17 04:20 Plt Count 313 K/uL (130-400) 04/21/17 04:20 MPV 9.4 fl (7.2-11.7) 04/21/17 04:20 Neut % (Auto) 67.4 % (50.0-75.0) 04/21/17 04:20 Lymph % (Auto) 19.9 % (20.0-40.0) L 04/21/17 04:20 Rice % (Auto) 10.3 % (0.0-10.0) H 04/21/17 04:20 Eos % (Auto) 1.6 % (0.0-4.0) 04/21/17 04:20 Baso % (Auto) 0.8 % (0.0-2.0) 04/21/17 04:20 Neut # 8.6 K/uL (1.8-7.0) H 04/21/17 04:20 Lymph # 2.5 K/uL (1.0-4.3) 04/21/17 04:20 Rice # 1.3 K/uL (0.0-0.8) H 04/21/17 04:20 Eos # 0.2 K/uL (0.0-0.7) 04/21/17 04:20 Baso # 0.1 K/uL (0.0-0.2) 04/21/17 04:20 Neutrophils % (Manual) 84 % (42-75) H 04/19/17 12:35 Lymphocytes % (Manual) 7 % (20-50) L 04/19/17 12:35 Monocytes % (Manual) 8 % (0-10) 04/19/17 12:35 Eosinophils % (Manual) 1 % (0-7) 04/19/17 12:35 Platelet Estimate Normal (NORMAL) 04/19/17 12:35 Large Platelets Present 04/19/17 12:35 Giant Platelets Present 04/19/17 12:35 Anisocytosis (manual) Slight 04/19/17 12:35 PT 12.8 Seconds (9.8-13.1) 04/22/17 09:20 INR 1.2 (0.9-1.2) 04/22/17 09:20 APTT 29.6 Seconds (25.6-37.1) 04/19/17 12:35 pCO2 31 mm/Hg (35-45) L 04/19/17 17:05 pO2 93 mm/Hg (80-100) 04/19/17 17:05 HCO3 21.9 mmol/L (21-28) 04/19/17 17:05 ABG pH 7.41 (7.35-7.45) 04/19/17 17:05 ABG Total CO2 20.6 mmol/L (22-28) L 04/19/17 17:05 ABG O2 Saturation 100.2 % (95-98) H 04/19/17 17:05 ABG O2 Content 20.5 ML/dL (15-23) 04/19/17 17:05 ABG Base Excess -3.8 mmol/L (-2.0-3.0) L 04/19/17 17:05 ABG Hemoglobin 15.4 g/dL (11.7-17.4) 04/19/17 17:05 ABG Carboxyhemoglobin 3.3 % (0.5-1.5) H 04/19/17 17:05 POC ABG HHb (Measured) -0.2 % (0.0-5.0) L 04/19/17 17:05 ABG Methemoglobin 2.5 % (0.0-3.0) 04/19/17 17:05 ABG O2 Capacity 20.5 mL/dL (16-24) 04/19/17 17:05 Geovanny Test Yes 04/19/17 17:05 VBG pH 7.38 (7.32-7.43) 04/19/17 13:41 VBG pCO2 33 mmHg (40-60) L 04/19/17 13:41 VBG HCO3 21.2 mmol/L 04/19/17 13:41 VBG Total CO2 20.5 mmol/L (22-28) L 04/19/17 13:41 VBG O2 Sat (Calc) 99.0 % (40-65) H 04/19/17 13:41 VBG Base Excess -4.7 mmol/L (0.0-2.0) L 04/19/17 13:41 VBG Potassium 2.7 mmol/L (3.6-5.2) L 04/19/17 13:41 A-a O2 Difference 18.0 mm/Hg 04/19/17 17:05 Hgb O2 Saturation 94.5 % (95.0-98.0) L 04/19/17 17:05 Sodium 131.0 mmol/L (132-148) L 04/19/17 13:41 Chloride 99.0 mmol/L (98-107) 04/19/17 13:41 Glucose 135 mg/dL (65-105) H 04/19/17 13:41 Lactate 2.0 mmol/L (0.7-2.1) 04/19/17 13:41 FiO2 21.0 % 04/19/17 17:05 Sodium 141 mmol/l (132-148) 04/21/17 04:20 Potassium 3.8 MMOL/L (3.6-5.0) 04/21/17 04:20 Chloride 110 mmol/L (98-107) H 04/21/17 04:20 Carbon Dioxide 23 mmol/L (22-30) 04/21/17 04:20 Anion Gap 12 (10-20) 04/21/17 04:20 BUN 3 mg/dl (7-17) L 04/21/17 04:20 Creatinine 0.5 mg/dL (0.7-1.2) L 04/21/17 04:20 Est GFR ( Amer) > 60 04/21/17 04:20 Est GFR (Non-Af Amer) > 60 04/21/17 04:20 POC Glucose (mg/dL) 152 mg/dL (65-110) H 04/19/17 12:13 Random Glucose 118 mg/dL (65-105) H 04/21/17 04:20 Hemoglobin A1c 5.5 % (4.2-6.5) 04/19/17 09:00 Calcium 9.4 mg/dL (8.4-10.2) 04/21/17 04:20 Phosphorus 1.2 mg/dl (2.5-4.5) L 04/21/17 04:20 Magnesium 1.7 MG/DL (1.6-2.3) 04/21/17 04:20 Total Bilirubin 0.6 mg/dl (0.2-1.3) 04/23/17 06:25 Direct Bilirubin 0.4 mg/ml (0.0-0.4) 04/23/17 06:25 AST 86 U/L (14-36) H D 04/23/17 06:25 ALT 174 U/L (9-52) H D 04/23/17 06:25 Alkaline Phosphatase 92 U/L (38-126) 04/23/17 06:25 Ammonia 18 umo/L (11-51) 04/22/17 18:01 Total Creatine Kinase 59 U/L (30-135) 04/21/17 04:20 Troponin I < 0.0120 ng/mL (0.00-0.120) 04/19/17 12:35 Total Protein 7.3 G/DL (6.3-8.2) 04/23/17 06:25 Albumin 4.4 g/dL (3.5-5.0) 04/23/17 06:25 Globulin 2.9 gm/dL (2.2-3.9) 04/23/17 06:25 Albumin/Globulin Ratio 1.5 (1.0-2.1) 04/23/17 06:25 Triglycerides 88 mg/DL (0-149) 04/19/17 12:35 Cholesterol 181 mg/dL (0-199) 04/19/17 12:35 LDL Cholesterol Direct 106 mg/dL (0-129) 04/19/17 12:35 HDL Cholesterol 43 MG/DL (30-70) 04/19/17 12:35 Procalcitonin 42.41 NG/ML (0.19-0.49) H 04/19/17 20:00 TSH 3rd Generation 0.47 mIU/ML (0.46-4.68) 04/19/17 20:00 Venous Blood Potassium 2.7 mmol/L (3.6-5.2) L 04/19/17 13:41 Urine Color Yellow (YELLOW) 04/19/17 13:49 Urine Clarity Turbid (Clear) 04/19/17 13:49 Urine pH 5.0 (5.0-8.0) 04/19/17 13:49 Ur Specific [place] 1.017 (1.003-1.030) 04/19/17 13:49 Urine Protein 30 mg/dL (NEGATIVE) 04/19/17 13:49 Urine Glucose (UA) Neg mg/dL (Normal) 04/19/17 13:49 Urine Ketones Negative mg/dL (NEGATIVE) 04/19/17 13:49 Urine Blood Negative (NEGATIVE) 04/19/17 13:49 Urine Nitrate Positive (NEGATIVE) H 04/19/17 13:49 Urine Bilirubin Negative (NEGATIVE) 04/19/17 13:49 Urine Urobilinogen 0.2-1.0 mg/dL (0.2-1.0) 04/19/17 13:49 Ur Leukocyte Esterase Large Ana/uL (Negative) 04/19/17 13:49 Urine RBC (Auto) 2 /hpf (0-3) 04/19/17 13:49 Urine WBC Clumps (Auto) Many /hpf (NONE) H 04/19/17 13:49 Urine Microscopic WBC 1284 /hpf (0-5) H 04/19/17 13:49 Urine Bacteria Mod (<OCC) H 04/19/17 13:49 Salicylates < 1.0 mg/dl 04/19/17 12:35 Urine Opiates Screen Negative (NEGATIVE) 04/19/17 22:00 Urine Methadone Screen Negative (NEGATIVE) 04/19/17 22:00 Acetaminophen < 10.0 ug/ml (10.0-30.0) L 04/21/17 04:20 Ur Barbiturates Screen Negative (NEGATIVE) 04/19/17 22:00 Ur Phencyclidine Scrn Negative (NEGATIVE) 04/19/17 22:00 Ur Amphetamines Screen Negative (NEGATIVE) 04/19/17 22:00 U Benzodiazepines Scrn Positive (NEGATIVE) H 04/19/17 22:00 U Oth Cocaine Metabols Negative (NEGATIVE) 04/19/17 22:00 U Cannabinoids Screen Negative (NEGATIVE) 04/19/17 22:00 Alcohol, Quantitative < 10 mg/dl (0-10) 04/19/17 12:35 Hepatitis A IgM Ab Negative (NEGATIVE) 04/21/17 10:12 Hepatitis A Ab Total Antibody pos (NEGATIVE) H 04/21/17 18:10 Hep Bs Antigen Negative (NEGATIVE) 04/21/17 10:12 Hep Bs Antibody Negative (NEGATIVE) 04/21/17 16:00 Hep B Core IgM Ab Negative (NEGATIVE) 04/21/17 10:12 Hepatitis C Antibody Negative (NEGATIVE) 04/21/17 18:10 Blood Type O POSITIVE 04/19/17 12:35 Blood Type Confirm O POSITIVE 04/19/17 13:25 Antibody Screen Negative 04/19/17 12:35 BBK History Checked No verified bt 04/19/17 12:35 - Hospital Course Hospital Course: ANXIOUS MORE ALERT Discharge Exam - Head Exam Head Exam: NORMOCEPHALIC - Eye Exam Eye Exam: EOMI, Normal appearance, PERRL Pupil Exam: NORMAL ACCOMODATION, PERRL - GI/Abdominal Exam GI & Abdominal Exam: Normal Bowel Sounds - Rectal Exam Rectal Exam: NORMAL INSPECTION - Neurological Exam Neurological exam: Alert, CN II-XII Intact, Normal Gait, Oriented x3, Reflexes Normal - Psychiatric Exam Psychiatric exam: Normal Affect, Normal Mood - Skin Skin Exam: Dry, Intact, Normal Color, Warm Discharge Plan - Follow Up Plan Condition: CRITICAL Disposition: DISCHARGE TO PSYCH HOSPITAL Patient education suggested?: Yes Instructions: Urinary Tract Infection in Women (GEN), Extended Spectrum Beta Lactamase (GEN) Additional Instructions: TRANSFER TO PSYCH [facility]
== END 2017-04-23 15:57 | DRG 918 ==
LOC: H.ER 11:59 → H.ERHOLD 16:00 → H.ICU/CCU 17:28 → H.MEDSURG1 04-21 18:50
PROVIDERS: ADMIT Internal Medicine Pulmonary Disease; ATTEND Internal Medicine Pulmonary Disease
DX: T39.1X2A Poisoning by 4-Aminophenol derivatives, intentional self-harm, initial encounter (principal); F33.2 Major depressive disorder, recurrent severe without psychotic features; N39.0 Urinary tract infection, site not specified; F03.90 Unspecified dementia, unspecified severity, without behavioral disturbance, psychotic disturbance, mood disturbance, and anxiety; E87.1 Hypo-osmolality and hyponatremia; F31.9 Bipolar disorder, unspecified; B96.20 Unspecified Escherichia coli [E. coli] as the cause of diseases classified elsewhere; E87.6 Hypokalemia; I10 Essential (primary) hypertension; E78.00 Pure hypercholesterolemia, unspecified; E78.5 Hyperlipidemia, unspecified; R79.89 Other specified abnormal findings of blood chemistry; M54.9 Dorsalgia, unspecified; R41.0 Disorientation, unspecified; F41.9 Anxiety disorder, unspecified

== ENCOUNTER 2017-04-23 15:54 | Inpatient (IN) | payer MEDICARE, MEDICAID ==
[2017-04-23 17:22] VITALS: BMI 30.5
[2017-04-23] MEDS ORDERED: Magnesium Hydroxide Susp 30 ml UD PO PRN (17:34)
[2017-04-23] MEDS ORDERED: Alum-Mag Hydrox-Simethicone Susp (30 mL) PO PRN (17:34)
[2017-04-23] MEDS ORDERED: Bismuth Subsalicylate 262 mg/15 ml Sus (240 ml) PO PRN (17:34)
--- NOTE | 2017-04-24 00:10 | PCM.BM ---
<Bigg Velez - Last Filed: 04/24/17 00:09> Treatment Plan Problems - Problems identified on initial assessmt Hopelessness/Helplessness Date Initiated: 04/24/17 Time Initiated: 00:09 Assessment reference: NA Status: Active Treatment assets and liabiliti Patient Assests: cooperative, negotiates basic needs Patient Liabilities: live alone - Milieu Protocol Maintain good personal hygiene: daily Encourage regular showers, daily Remind patient to perform daily oral care, every shift Assist patient to perform ADL's Maintain personal safety: every shift Educate patient to report safety concerns to staff, every shift Monitor environment for contraband/sharps Medication safety: Monitor for expected outcome, potential side effects: every shift, Assess barriers to learning: every shift, Assess readiness for medication education: every shift <Monse Caldwell - Last Filed: 04/24/17 10:54> - Diagnosis (1) Major depressive disorder Status: Acute Interventions: Individual and group therapy, medication management, psychoeducation 04/24/17 10:54 <Edgardo Carrera - Last Filed: 04/25/17 11:34> Family Contact Family contact: Patient agrees to contact, Family has been contacted by patient , Telephone contact initiated by staff Family contact name: Torsten Pozo () Family contacted how many times per week?: 3 Family contact comment: [employer] attempted to contact numerous times and has called back, yet both parties have yet to connect. - Goals for Treatment Patient goals for treatment: Pt is reporting she feels much brighter and wants to return home and to her outpatient provider.
[2017-04-24] MEDS: Meropenem 500 MG in Sodium Chloride 0.9% 100 ML IVPB SCH ×3 (01:08→16:53)
[2017-04-24 06:26] LABS: HEMATOCRIT 39.3 % (34.0-47.0); MEAN CORPUSCULAR HEMOGLOBIN 31.9 pg (27.0-31.0); MEAN CORPUSCULAR HGB CONC 34.3 g/dL (33.0-37.0); RED CELL DISTRIBUTION WIDTH 13.1 % (11.5-14.5); WHITE BLOOD COUNT 12.3 K/uL (4.8-10.8)
[2017-04-24 06:30] VITALS: RESP 18
[2017-04-24 06:33] LABS: ALB/GLOB RATIO 1.4 (1.0-2.1); ALKALINE PHOSPHATASE 98 U/L (38-126); ALT/SGPT 146 U/L (9-52); AST/SGOT 54 U/L (14-36); BILIRUBIN,TOTAL 0.9 mg/dl (0.2-1.3); BLOOD UREA NITROGEN 7 mg/dl (7-17); CALCIUM 10.1 mg/dL (8.4-10.2); CARBON DIOXIDE 23 mmol/L (22-30); CHLORIDE 106 mmol/L (98-107); GFR AFRICAN-AMERICAN > 60; GLUCOSE,RANDOM 136 mg/dL (65-105); POTASSIUM 3.5 MMOL/L (3.6-5.0); SODIUM 143 mmol/l (132-148); TOTAL PROTEIN 7.8 G/DL (6.3-8.2)
[2017-04-24 06:44] LABS: T4 12.9 ug/dl (5.5-11.0)
[2017-04-24 06:58] LABS: THYROID STIMULATING HORMONE 1.65 mIU/ML (0.46-4.68)
--- NOTE | 2017-04-24 10:55 | PCM.PSYCH ---
Initial Psychiatric Evaluation - Initial Psychiatric Evaluation Type of Admission: Voluntary Legal Status: Capacity Chief Complaint (in patient's own words): "I took too many pills, I know what I did was wrong." Patient's Reaction to Hospitalization: HPI: Patient 76 yo F with PMH of HTN, Hypercholesterolemia, and depression, transferred from the medical unit after she was admitted for intentional tylenol overdose. Patient reports that she no longer has ideation to harm herself. She reports that Xanax and Trazodone have been effective to treat her depression in the past and she is not agreeable to changing her medications at this time. +Depressed mood. +Sleep/appetite disturbances. +Poor concentration. NO AH/VH/paranoia/delusions. PPHx: History of previous overdoses in the past. She reports that she sees Dr. Leal, who prescribes her Xanax and Trazodone for sleep. PMH: HTN, Hypercholesterolemia, Depression, chronic back pain, osteoarthrisis PSH: Hysterectomy, Hallux valgus. SH: Lives w/ , denies smoking, alcohol or drugs. Allergies: NKDA PCP: Dr Reyes. Current Medications: Active Medications Generic Name Dose Route Start Last Admin Trade Name Freq PRN Reason Stop Dose Admin Acetaminophen 650 mg 04/23/17 17:34 Tylenol 325mg Tab PO Q4 PRN Pain, moderate (4-7) Al Hydrox/Mg Hydrox/Simethicone 30 ml 04/23/17 17:34 Maalox Plus 30 Ml PO Q4 PRN Dyspepsia Bismuth Subsalicylate 524 mg 04/23/17 17:34 Pepto-Bismol PO Q4 PRN Diarrhea Famotidine 40 mg 04/23/17 22:00 04/23/17 21:13 Pepcid PO 40 mg HS TETE Administration Meropenem 500 mg/ Sodium 100 mls @ 100 mls/hr 04/24/17 01:00 04/24/17 10:03 Chloride IVPB 100 mls/hr Q8 TETE Administration Lorazepam 0.5 mg 04/23/17 17:34 04/24/17 01:24 Ativan PO 05/07/17 17:35 0.5 mg HS PRN Administration Insomnia Lorazepam 0.5 mg 04/23/17 17:34 Ativan PO 05/07/17 17:35 Q6 PRN Anixety/Agitation Magnesium Hydroxide 30 ml 04/23/17 17:34 Milk Of Magnesia PO HS PRN Constipation Past Psychiatric History - Past Psychiatric History Previous Treatment History: Inpatient Pertinent Medical Hx (Current Medical&Sleep Prob, Allergies): Allergies Allergy/AdvReac Type Severity Reaction Status Date / Time No Known Allergies Allergy Verified 04/19/17 12:02 traMADol [Ultram] 50 mg PO Q6 PRN #20 tab 03/17/17 traZODone [Desyrel] 50 mg PO HS tab 03/17/17 Famotidine [Pepcid] 40 mg PO HS tab 04/23/17 Meropenem [Merrem IV] 500 mg IV Q8 #15 pds 04/23/17 QUEtiapine [Seroquel] 12.5 mg PO Q8H PRN tab 04/23/17 Review of Systems - Psychiatric Psychiatric: As Per HPI, Abnormal Sleep Pattern, Depression, Difficulty Concentrating, Mood Swings, Suicidal Ideation Mental Status Examination - Personal Presentation Personal Presentation: Looks stated age - Affect Affect: Constricted - Motor Activity Motor Activity: Calm - Reliability in Providing Information Reliability in Providing Information: Fair - Speech Speech: Coherent - Mood Mood: Depressed - Formal Thought Process Formal Thought Process: No Impairment - Hallucinations/Delusions Additional comments: No AH/VH/paranoia/delusions - Obsessions/Compulsions Obsessions: No Compulsions: No - Cognitive Functions Orientation: Person, Place, Situation, Time Sensorium: Alert Attention/Concentration: Attentive Estimate of Intelligence: Average Judgement: Intact, as evidence by: Insight regarding need for hospitalization Memory: Recent intact, as evidence by: Ability to recall events of the day - Risk Risk: Suicidal, Diminished functioning - Strength & Assets Inventory Strength & Assets Inventory: Cooperative DSM 5 DX - DSM 5 DSM 5 Diagnosis: Major Depressive Disorder - Recommended/Plan of Treatment Treatment Recommendations and Plan of Treatment: Major Depressive Disorder; patient needs acute inpatient hospitalization for treatment and safety s/p intentional tylenol overdose. -Admit to geropsychiatry -Restart Trazodone 50 mg PO HS, patient unwilling to change her psychiatric medications at this time -Hold Xanax at this time, as per [place] prescription monitoring program, patient last picked up a prescription of Xanax 1 mg (60 tablets) on 02/04/17 -Individual and group therapy -Medicine consult -Disposition planning -Software Configuration Manager attempted to call Dr. Leal for collateral history Projected ELOS: 3-7 days Discharge Plan and Discharge Criteria: Discharge when psychiatrically stable - Smoking Cessation Smoking Cessation Initiated: No Reason for not providing: Not indicated
[2017-04-24 13:29] LABS: RBC URINE 2 /hpf (0-3); URINE BILIRUBIN NEGATIVE (NEGATIVE); URINE BLOOD NEGATIVE (NEGATIVE); URINE COLOR STRAW (YELLOW); URINE GLUCOSE (UA) NEG (Normal); URINE KETONE NEGATIVE (NEGATIVE); URINE LEUKOCYTE ESTERASE NEG Leu/uL (Negative); URINE PROTEIN NEGATIVE (NEGATIVE); URINE UROBILINOGEN 0.2-1.0 mg/dL (0.2-1.0); WBC URINE 1 /hpf (0-5)
[2017-04-24 17:43] LABS: FOLATE > 20.0 ng/mL
--- NOTE | 2017-04-24 21:38 | CON ---
HISTORY OF PRESENT ILLNESS: Ms. Pozo is a 76-year-old female who was admitted to the medical floor, then transferred to the psychiatric saleh. She came in with drug overdose and altered mental status. She was finally transferred to the psychiatric floor for phototherapy. On the medical floor, she was found to have urinary tract infection and nonspecific hepatic inflammation. PAST MEDICAL HISTORY: Remarkable for anxiety with depression and multiple attempts at drug overdose as per family. She also has a very inappropriate affect. FAMILY HISTORY: Unremarkable. SOCIAL HISTORY: She does not drink or smoke and lives alone, but has a supportive family as son and as [id number]. REVIEW OF SYSTEMS: Remarkable for inappropriate behavior. PHYSICAL EXAMINATION: GENERAL: The patient is alert, somewhat oriented, but very inappropriate. VITAL SIGNS: Blood pressure 150/90 with a pulse of 83, respiratory rate 18, she is afebrile, and O2 sat 100% on room air. SKIN: Shows fair turgor. HEENT: Pupils are equal and reactive to light and accommodation. She has permanent tattoo on her eyebrows and her lips, [id number] hygiene. LUNGS: Clear. HEART: Regular. No murmurs, gallops, or rubs. ABDOMEN: Soft and nontender. No organomegaly. EXTREMITIES: Shows no edema or cyanosis. CENTRAL NERVOUS SYSTEM: Grossly intact except for the patient's inappropriate behavior and anxiety. LABORATORY DATA: Pending. IMPRESSION: Behavioral disorder with urinary tract infection, drug overdose (Tylenol and benzodiazepine), and mild hypertension. PLAN: Monitor the patient in psychiatric saleh. The therapy will be as per the psychiatrist. We will monitor the blood pressure closely, and if blood pressure continues to see elevated, we will probably place on antihypertensive and also monitor liver functions closely. We will continue to follow with you. Sergey Carr MD
[2017-04-25 06:07] VITALS: BP 159/83; PULSE 80; TEMP 98.2
--- NOTE | 2017-04-25 09:46 | PCM.PYCHDC ---
Mental Status Examination - Mental Status Examination Orientation: Person, Place, Situation, Time Memory: Intact Mood: Neutral Affect: Broad Speech: Appropriate Attention: WNL Concentration: WNL Association: WNL Fund of Knowledge: WNL Formal Thought Process: No Impairment Description of patient's judgement and insight: Fair I/J Psychotic Thoughts and Behaviors: NO AH/VH/paranoia/delusions Suicidal Ideation: No Current Homicidal Ideation?: No Discharge Summary - Discharge Note Reason for Hospitalization: HPI: Patient 76 yo F with PMH of HTN, Hypercholesterolemia, and depression, transferred from the medical unit after she was admitted for intentional tylenol overdose. Patient reports that she no longer has ideation to harm herself. She reports that Xanax and Trazodone have been effective to treat her depression in the past and she is not agreeable to changing her medications at this time. +Depressed mood. +Sleep/appetite disturbances. +Poor concentration. NO AH/VH/paranoia/delusions. PPHx: History of previous overdoses in the past. She reports that she sees Dr. Leal, who prescribes her Xanax and Trazodone for sleep. PMH: HTN, Hypercholesterolemia, Depression, chronic back pain, osteoarthrisis PSH: Hysterectomy, Hallux valgus. SH: Lives w/ , denies smoking, alcohol or drugs. Allergies: NKDA PCP: Dr Reyes. Laboratory Data: Abnormal Lab Results 04/24/17 04/24/17 06:00 13:20 Folate > 20.0 Urine Color Straw Urine Clarity Clear Urine pH 7.0 Ur Specific [place] 1.006 Urine Protein Negative Urine Glucose (UA) Neg Urine Ketones Negative Urine Blood Negative Urine Nitrate Negative Urine Bilirubin Negative Urine Urobilinogen 0.2-1.0 Ur Leukocyte Esterase Neg Urine RBC (Auto) 2 Urine Microscopic WBC 1 Ur Squamous Epith Cells < 1 Consultations:: List each consultation separately and include: 1. Reason for request. 2. Findings. 3. Follow-up Consultations: Medicine consult Summary of Hospital Course include:: 1. Description of specific treatment plan utilized for patients during their course of treatmen. 2. Summarize the time- course for resolution of acute symptoms and/or regressed behaviors. 3. Describe issues identified and worked on during hospitalization. 4. Describe medication utilized. 5. Describe medical problems identified and treated. 6. Reassessment of suicide risk Summary of Hospital Course: Patient admitted to the geropsychiatry unit after she was admitted to the medical unit s/p overdose on tylenol. She reports that this was an impulsive decision to get attention and is now remorseful of her actions. She was seen by psychiatry consult will admitted on the medical unit and eventually was transferred to the psychiatry unit. She was restarted on Lexapro 5 mg PO Daily and Trazodone 100 mg PO HS. As per primary psychiatrist Dr. Leal, patient was doing well at her last visit in October 2016 and has been stable on Lexapro 20 mg PO Daily, Trazodone 100 mg PO HS and Xanax 1 mg PO HS in the past. Patient was started on lower doses of Lexapro and Trazodone (initally) due to not being on the medications for a period of time. Xanax will continue to be held at this time. Patient submitted a 48 hour letter requesting discharge and as she doesn't currently meet criteria for involuntary commitment, will be sent home w / continued f/u with Dr. Leal. Patient denies current ideation ideation to harm self or others. - Diagnosis (1) Major depressive disorder Current Visit: Yes Status: Chronic - Final Diagnosis (DSM 5) Condition upon Discharge: GOOD DSM 5: Major Depressive Disorder Disposition: HOME/ ROUTINE Follow-up Treatment Plan: Major Depressive Disorder; Patient submitted a 48 hour letter requesting discharge. She denies current ideation to harm herself and has denied suicidal ideation since her initial admission to the medical unit where she was followed by psychiatry consult. She will continue to follow-up with Dr. Leal as an outpatient. -Trazodone 100 mg PO HS, Lexapro 5 mg PO Daily -Hold Xanax at this time, as per [place] prescription monitoring program, patient last picked up a prescription of Xanax 1 mg (60 tablets) on 02/04/17 -Individual and group therapy -Medicine consult- patient to continue Macrobid for a total of 7 days Prescriptions/Medication Reconciliation: Escitalopram [Lexapro] 5 mg PO DAILY #30 tab Famotidine [Pepcid] 40 mg PO DAILY #30 tab Nitrofurantoin Macrocrystals [Macrobid] 100 mg PO Q12 #12 cap traZODone [Desyrel] 100 mg PO HS #30 tab - Smoking Cessation Smoking Cessation Medication prescribed: No Reason for not providing: Not indicated - Antipsychotic Medications Pt discharged on 2 or more routine antipsychotic medications: No
--- NOTE | 2017-04-25 13:40 | CP.PCM.PN ---
Subjective - Date & Time of Evaluation Date of Evaluation: 04/25/17 Time of Evaluation: 13:44 - Subjective Subjective: WANTS TO GO HOME NO NEW FINDINGS Objective - Vital Signs/Intake and Output Vital Signs (last 24 hours): Temp Pulse Resp BP Pulse Ox 98.2 F 80 18 159/83 H 04/25/17 06:00 04/25/17 06:00 04/25/17 06:00 04/25/17 06:00 - Medications Medications: Current Medications Escitalopram Oxalate (Lexapro) 5 mg PO DAILY [facility] Last Admin: 04/25/17 08:20 Dose: 5 mg Famotidine (Pepcid) 40 mg PO HS [facility] Last Admin: 04/24/17 21:26 Dose: 40 mg Nitrofurantoin Macrocrystals (Macrobid) 100 mg PO Q12 [facility] Last Admin: 04/25/17 08:18 Dose: 100 mg Trazodone HCl (Desyrel) 100 mg PO [facility] - Labs Labs: 04/24/17 06:00 04/24/17 06:00 - Constitutional Appears: No Acute Distress - Head Exam Head Exam: ATRAUMATIC, NORMAL INSPECTION, NORMOCEPHALIC - Eye Exam Eye Exam: EOMI, Normal appearance, PERRL Pupil Exam: NORMAL ACCOMODATION, PERRL - ENT Exam ENT Exam: Mucous Membranes Moist, Normal Exam - Neck Exam Neck Exam: Full ROM, Normal Inspection. absent: Lymphadenopathy - Respiratory Exam Respiratory Exam: Clear to Ausculation Bilateral, NORMAL BREATHING PATTERN - Cardiovascular Exam Cardiovascular Exam: REGULAR RHYTHM, +S1, +S2. absent: Murmur - GI/Abdominal Exam GI & Abdominal Exam: Soft, Normal Bowel Sounds. absent: Tenderness - Rectal Exam Rectal Exam: NORMAL INSPECTION - Extremities Exam Extremities Exam: Full ROM, Normal Capillary Refill, Normal Inspection. absent : Joint Swelling, Pedal Edema - Back Exam Back Exam: NORMAL INSPECTION - Neurological Exam Neurological Exam: Alert, Awake, CN II-XII Intact, Normal Gait - Skin Skin Exam: Dry, Intact, Normal Color, Warm Assessment and Plan - Assessment and Plan (Free Text) Assessment: DRUG OD UTI DEPRESSION Plan: CONTINUE RX PER PSYCH
== END 2017-04-25 14:29 | disposition home or self-care (01) | DRG 881 ==
LOC: H.STEP 17:22
PROVIDERS: ADMIT Psychiatry & Neurology Psychiatry; ATTEND Psychiatry & Neurology Psychiatry
PROC: GZ51ZZZ Individual Psychotherapy, Behavioral (ICD-10-PCS; principal; 2017-04-23)
DX: F32.9 Major depressive disorder, single episode, unspecified (principal); N39.0 Urinary tract infection, site not specified; I10 Essential (primary) hypertension; F91.9 Conduct disorder, unspecified; E78.00 Pure hypercholesterolemia, unspecified; Z79.899 Other long term (current) drug therapy; Z90.710 Acquired absence of both cervix and uterus; Z91.5 Personal history of self-harm; F41.8 Other specified anxiety disorders; M54.9 Dorsalgia, unspecified; G89.29 Other chronic pain; M20.10 Hallux valgus (acquired), unspecified foot